=== PATIENT | female | born 1975 | race Caucasian/White ===

== ENCOUNTER 2019-04-29 08:51 | Observation (INO) ==
--- OUTSIDE RECORDS SUMMARY | 2019-04-29 08:54 | External Medical Summary | Continuity of Care Document ---
:1975 Author Name Katherine Blanc, Provider Address Unavailable Unavailable , Care Team Providers Name Role Phone Juan Carlos Cool [email or web address] Juan Carlos Cool M.D. Unavailable Unavailable Unavailable Unavailable Unavailable Problems Atypical chest pain (786.59) (R07.89) Acute bronchitis with bronchospasm (466.0) (J20.9) Pain of left calf (729.5) (M79.662) Somatic dysfunction of lower extremities (739.6) (M99.06) Pelvic somatic dysfunction (739.5) (M99.05) Sacral region somatic dysfunction (739.4) (M99.04) Segmental and somatic dysfunction of lumbar region (739.3) ( M99.03) Piriformis syndrome of right side (355.0) (G57.01) Current tobacco use (305.1) (Z72.0) Anxiety (300.00) (F41.9) Acne (706.1) (L70.9) Allergies and Adverse Reactions No Known Drug Allergies (Allergy) Medications methylPREDNISolone 4 MG Oral Tablet Therapy Pack; Take as directed ROBERTH Uribe Start: 09-Jun-2016 Quantity: 1 21 Tablet Therapy Pa ck Bottle Refills: 0 EQL Nicotine 2 MG LOZG; ALLOW 1 LOZENGE TO DISSOLVE SL OWLY IN MOUTH DIRECTED Jayashree Cool Start: 10-Jun-2017 Quantity: 180 Refills: 3 Ventolin HFA 108 (90 Base) MCG/ACT Inhal ation Aerosol Solution; INHALE 1 TO 2 PUFFS EVERY 4 TO 6 HOURS NEEDED. ROBERTH Uribe Start: 09-Jun-2016 Quantity: 1 18 GM Inhaler Refills: 1 Azithromycin 250 MG Oral Tablet; TAKE 2 TABLETS ON DAY 1 THEN TAKE 1 TABLET A DAY FOR 4 DAYS. ROBERTH Uribe Start: 09-Jun-2016 Quantity: 1 6 Tablet Disp Pack Refills: 0 Aldactone 50 MG Oral Tablet; TAKE 2 TABLET EVERY DAY Start: 01-Mar-2016 Refills: 0 Clindamycin Phosphate 1 % External Lotio n; APPLY SPARINGLY TO AFFECTED AREA(S) ONCE DAILY Start: 01-Mar-2016 Refills: 0 Retin-A 0.025 % External Gel; APPLY DIRECTED. Start: 01-Mar-2016 Refills: 0 Procedures History of Tonsillectomy Status: Complet ed History of Ankle Surgery Status: Complet ed Immunizations Immunizations not documented Social History - Smoking Status Current every day smoker Plan of Treatment Planned Observations Planned Goals not documented Results No Known Results Results not documented Encounters Appointment; Jed Alexandra DO 08-Dec-2017 16:00 Encounter Diagnosis: Problem not documented
[2019-04-29 09:16] LABS: POC Urine Blood 250 (Negative); POC Urine Glucose Normal (Normal); POC Urine Leukocytes 2+ (Negative); POC Urine Nitrite Negative (Negative); POC Urine Protein 1+ (Negative)
[2019-04-29 09:21] LABS: Appearance Urine Turbid (Clear); Bacteria Urine Automated 4+ (Negative); Bilirubin Urine Negative (Negative); Blood Urine 3+ (Negative); Color Urine Yellow; Glucose Urine UA Negative (Negative); Ketones Urine 2+ (Negative); Leukocyte Esterase Urine 3+ (Negative); Nitrite Urine Negative (Negative); Specific Gravity Urine 1.009 (1.000-1.030); Urobilinogen Urine Negative (Negative); WBC Urine Automated >30 /hpf (0-5); pH Urine 7.5 (4.5-7.5)
[2019-04-29 09:30] LABS: Protein Urine 2+ (Negative); Sulfosalicylic Acid Urine Positive (Negative)
[2019-04-29 09:33] LABS: Cast Urine Automated 0 /lpf (0-5); RBC Urine Automated >30 /hpf (0-4)
[2019-04-29] MEDS ORDERED: SODIUM CHLORIDE 0.9% 1000ML 1,000 ML IV ONE (09:44)
[2019-04-29 10:12] LABS: Basophils # (auto) 0.03 K/uL (0-0.2); Basophils % (auto) 0.2 %; Eosinophils # (auto) 0.06 K/uL (0-0.5); Eosinophils % (auto) 0.4 %; Hematocrit (blood only) 39.6 % (37-47); Hemoglobin 13.5 g/dL (12.0-16.0); Immature Granulocytes # (auto) 0.02 K/uL (0.00-0.02); Immature Granulocytes % (auto) 0.1 %; Lymphocytes # (auto) 0.78 K/uL (1.2-3.4); Lymphocytes % (auto) 5.7 %; Mean Corpuscular Hgb Conc 34.1 g/dL (32-36); Mean Corpuscular Volume 90.8 fL (80-100); Monocytes # (auto) 0.88 K/uL (0.11-0.59); Monocytes % (auto) 6.5 %; Neutrophils # (auto) 11.84 K/uL (1.4-6.5); Neutrophils % (auto) 87.1 %; Platelet Count 209 K/uL (130-400); RDW Coefficient of Variation 13.6 % (11.5-14.5); RDW Standard Deviation 45.6 fL (36.4-46.3); Red Blood Count 4.36 M/uL (4.2-5.4); White Blood Count 13.61 K/uL (4.8-10.8)
[2019-04-29 10:28] LABS: Albumin Level 3.6 gm/dl (3.4-5.0); BUN Creatinine Ratio 4.4 (10-20); Bilirubin Direct 0.2 mg/dl (0-0.2); Calcium 9.2 mg/dl (8.5-10.1); Creatinine Clr Calc Pharmacy 75.4 ml/min; Est GFR (African American) 90.2; Est GFR (Non-African American) 77.8; Potassium 3.7 mmol/L (3.5-5.1)
[2019-04-29 10:31] LABS: Albumin Globulin Ratio 0.9 (0.9-2); Bilirubin,Total 0.6 mg/dl (0.2-1); Total Protein 7.6 gm/dl (6.4-8.2)
[2019-04-29] MEDS ORDERED: IOVERSOL 100ml IV PRN (10:45)
--- NOTE | 2019-04-29 10:58 | CT Scan Report ---
ABDOMEN AND PELVIS CT WITH IV CONTRAST CT DOSE: 304.37 mGy.cm HISTORY: Right flank pain, r/o pyelonephritis TECHNIQUE: Multiaxial CT images of the abdomen and pelvis were performed following the use of intrave nous contrast. A dose lowering technique was utilized adhering to the principles of ALARA. COMPARISON STUDY: None. FINDINGS: The lung bases are clear. No pneumoperitoneum. No pneumatosis. No fractures within the visu alized osseous structures. Hepatic steatosis. The gallbladder, pancreas, spleen, and adrenal glands a re unremarkable. No retroperitoneal lymphadenopathy. The bladder, uterus, and bilateral adnexa are un remarkable. No bowel wall thickening or obstruction. Normal appendix. The left kidney enhances normal ly. A 9 mm exophytic hypodense lesion within the upper pole the right kidney is technically too small to characterize but favors a cyst. No hydronephrosis. Mild urothelial thickening within the right re nal pelvis and right ureter with adjacent fat stranding. There is also heterogeneous enhancement with in the right kidney. Therefore, this likely represents a pyelonephritis. IMPRESSION: 1. Heterogeneous enhancement within the right kidney with right-sided urothelial thickening likely re presenting a pyelonephritis. 2. No bowel wall thickening or obstruction. 3. Normal appendix. 4. Hepatic steatosis. Electronically signed by: Gian Burton M.D. 04/29/2019 10:57 AM
[2019-04-29] MEDS ORDERED: cefTRIAXone SODIUM 2,000 MG/70 ML BAG IV STA (11:27)
[2019-04-29] MEDS ORDERED: ACETAMINOPHEN 500 MG TAB PO STA (11:59)
--- NOTE | 2019-04-29 12:49 | History & Physical Report ---
Date of Service April 29, 2019 Assessment & Plan (1) Pyelonephritis: Admits to PCU on telemetry Vital signs every 4 hours IV fluids hydration with normal saline and 125 cc/h Started Rocephin in the ER 2 g continue to 24 hours for pyelonephritis Follow-up blood cultures Follow-up urine cultures For symptoms of myalgia ordered Reglan hour fever and Anaplasma Empirically started doxycycline for possible Anaplasma Influenza AMB pending Regular diet Follow-up CBC CMP daily, to be thorough we will check lipid panel in a.m. and A1c, TSH pending since patient in the ER tachycardic EKG pending for tachycardia DVT prophylaxis Lovenox 40 SC daily Full code Present on Admission?: Yes (2) Urinary tract infection: Same plan as above (3) Rash and nonspecific skin eruption: Started Solu-Medrol 60 mg IV for 2 days then taper down Patient says Benadryl daily help started Vistaril every 25 mg every 6 hours, loratadine and Flonase Monitor rash closely Present on Admission?: Yes (4) Nicotine dependence: Continue nicotine lozenges. Patient abstaining from smoking for 2 years. Present on Admission?: Yes History of Present Illness Chief Complaint: Right flank pain, generalized myalgia, flulike symptoms, rash for 5 days. Primary Care Provider: Juan Carlos Cool MD Patient is a 44 years old female without significant past medical history who presents to the emergency room with complaint of feeling right flank pain, cloudy urine, widespread body rash, and generalized malaise associated with stuffy nose and flulike symptoms. Patient said it has been ongoing for several days since she was on the beach at [place]. Patient tried home remedies to improve her condition but nothing relieves her pain or rash. Patient said she was taking Benadryl but then improve her rash. Patient believed that the rash occurred because she used sunscreen. Patient said that she was never allergic to any other sunscreen except for this one. patient is otherwise healthy. She was smoking in the past but quit 2 years ago and now she is using nicotine lozenges. Patient denies headache, fever, chills, chest pain, shortness of breath, abdominal pain, frequency, urgency, hematemesis, melena, dysuria, pyuria, melena, hematochezia. Patient admits to drinking socially on weekends. Labs are reviewed: WBC elevated of 13.61 with left shift of neutrophils 11.84, hemoglobin 13.5, hematocrit 39.6, platelets 209. Sodium 134, potassium 3.7, BUN 4, creatinine 0.91, GFR 77.8 AST normal 25 ALT 37 normal. Urine analysis significant for blood and urine, 3+ positive leukocyte esterase, over 30 B BC, and 4+ bacteria. Influenza A&B pending, will check for Anaplasma, Legionella since portion patient reports generalized body aches. CT abdomen pelvis significant for heterogeneous in enhancement within the right kidney with right-sided urothelial thickening likely represents a pyelonephritis. Normal appendix. No bowel thickening or obstruction. Hepatic steatosis. Decision was decision was made to admit patient to PCU on telemetry for observation for right kidney pyelonephritis, urinary tract infection generalized malaise and rash of unknown origin. Allergies Allergy/AdvReac Type Severity Reaction Status Date / Time No Known Allergies Allergy NONE Verified 04/29/19 09:55 Home Medications Home Medications Medication Instructions Recorded Confirmed Type No Known Home Medications 04/29/19 04/29/19 History Past Med/Surg History Social History Feels Safe at Home: Yes Smoking Status: Former smoker Review of Systems Review of Systems: All systems reviewed & are unremarkable except as noted in HPI & below Physical Exam Constitutional: WD/WN, vitals as above well developed Eyes: PERRL, conjunctivae normal, anicteric sclerae ENMT: Patient has runny nose with flulike symptoms. Tympanic membrane normal bilaterally Neck: trachea midline, no thyromegaly Respiratory: normal respiratory effort, lungs clear to auscultation Cardiovascular: RRR, no murmur, no edema Vessels: dorsalis pedis pulses present Musculoskeletal: no cyanosis or clubbing, extremities motor strength 5/5 Skin: no rashes, warm and dry + rash (Widespread body rash papular macular in nature patient said it is little bit better than yesterday but still very itchy. No ecchymosis no excoriation no lichenification patient has dry skin.) Neurologic: patellar DTR's 2+ bilat, sensation intact Psychiatric: A+Ox3, euthymic affect Lymphatic: no cervical or axillary lymphadenopathy Results & Data Vital Signs (Past 12 Hours) Vital Signs Temp Pulse Pulse Resp BP BP Pulse Ox 04/29/19 11:10 96 H 20 154/65 H 97 04/29/19 10:07 37.6 C H 93 H 18 129/83 100 04/29/19 08:54 36.9 C 101 H 22 135/82 98 Code Status & VTE Plan Code Status Full code VTE Prophylaxis Plan VTE Prophylaxis will be ordered: Yes PG Care Time/CCT Total # of Minutes Spent Total Time Spent with Patient: Total time spent is greater than 50% in coordination of care (as documented) at patient's floor/unit and/or counseling patient:
[2019-04-29 13:21] LABS: Influenza A virus by PCR Neg for Influ A (Neg); Influenza B virus by PCR Neg for Influ B (Neg)
--- NOTE | 2019-04-29 13:26 | Emergency Department Note ---
History of Present Illness General Chief complaint: Flank Pain Stated complaint: RT SIDED FLANK PAIN Time Seen by Provider: 04/29/19 09:15 Source: patient Mode of arrival: ambulatory Limitations: no limitations History of Present Illness Maximum Pain Intensity: 5 This 44-year-old white female presents to the ED for evaluation of right-sided flank pain that radiates around to her right abdomen and into the groin. She states her urine has been cloudy. She denies any fevers, sweats, nausea, vomiting, or diarrhea. No urinary hesitancy, urgency, burning, or frequency. She is concerned about a UTI. She also complains of a rash on her face, arms and legs. She recently was at the beach for a week. She used a new kind of sunscreen and states she broke out in a rash where the sunscreen was applied. She did try some Benadryl without improvement. Redness has persisted. It has become pruritic. No other treatment. No history of pyelonephritis. She states she overall feels uncomfortable but denies any nirav pain. Home Medications Home Medications Medication Instructions Recorded Confirmed Type cefdinir 300 mg PO BID 10 Days #20 cap 04/30/19 05/03/19 Rx doxycycline hyclate 100 mg PO BID 7 Days #14 tab 04/30/19 05/03/19 Rx prednisone 10 mg PO UD #9 tab 04/30/19 05/03/19 Rx albuterol sulfate HFA 90 1 puffs INH .COMPLEX PRN 05/02/19 05/03/19 History mcg/actuation aerosol inhaler Allergies Allergy/AdvReac Type Severity Reaction Status Date / Time No Known Allergies Allergy NONE Verified 05/03/19 12:02 Past Med/Surg History Medical History Nicotine dependence Surgical History History of ankle surgery S/P tonsillectomy Social History 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 Beliefs That Will Affect Care: None Current Living Situation: Family Feels Safe at Home: Yes Smoking Status: Former smoker Tobacco Type: cigarettes ; Hx Alcohol Use: Yes Alcohol type: beer Hx Substance Use: No Review of Systems A total of 10 systems reviewed and were otherwise negative Physical Exam Vital Signs Vital Signs - 24 hr 04/29/19 08:54 04/29/19 10:07 04/29/19 11:10 Temperature 36.9 C 37.6 C H Temperature Source Oral Oral Sepsis Recent Fever Within 48 Hours No Sepsis Action Taken by Nursing No Action Required Pulse Rate 101 H Pulse Rate [Left Finger] 93 H 96 H Pulse Rhythm Regular Pulse Strength Normal Respiratory Rate 22 18 20 Respiratory Effort / Characteristics Non-Labored Spontaneous Non-Labored Spontaneous Non-Labored Respiratory Depth Normal Normal Normal Respiratory Pattern Regular Regular Blood Pressure 135/82 Blood Pressure [Left Arm] 129/83 154/65 H Blood Pressure Mean 99 Blood Pressure Mean [Left Arm] 98 94 Blood Pressure Position Sitting Pulse Oximetry 98 100 97 Oxygen Delivery Method Room Air Room Air Room Air 04/29/19 12:47 Temperature Temperature Source Sepsis Recent Fever Within 48 Hours Sepsis Action Taken by Nursing Pulse Rate Pulse Rate [Left Finger] 105 H Pulse Rhythm Pulse Strength Respiratory Rate 20 Respiratory Effort / Characteristics Non-Labored Respiratory Depth Normal Respiratory Pattern Regular Blood Pressure Blood Pressure [Left Arm] 129/81 Blood Pressure Mean Blood Pressure Mean [Left Arm] 97 Blood Pressure Position Pulse Oximetry 98 Oxygen Delivery Method Room Air General: Well-developed, well-nourished, middle-aged white female, in no acute distress. Laying on a bed. Alert and oriented. Skin: Warm and dry with good turgor. Erythemic macules present on her face, arms, and legs. They do darline with pressure. Small excoriations are present from her scratching. No ecchymosis or edema. The patient is not diaphoretic. No other abrasions. HEENT: Normocephalic atraumatic. Eyes PERRLA, EOMI. No conjunctiva or scleral injection. Ears TMs intact bilaterally with good light reflexes. No erythema or bulging. No hemotympanum. Canals are patent. Nares patent bilaterally without turbinate enlargement. No significant drainage. No epistaxis. Oropharynx without erythema or exudate. Uvula midline, oral mucosa moist. No lesions present. Heart: Heart RRR. No MGR. Peripheral pulses are 2+. Lungs: Lungs are clear to auscultation. No crackles rhonchi or wheezing. Good air movement. The patient is able to take a deep breath. Abdomen: Abdomen was inspected, auscultated, and palpated. Bowel sounds present x 4. Soft, right lower quadrant and flank tender to palpation. No hepato- splenomegaly. No masses noted. No rebound. No pain over McBurney's point. Right-sided CVA tenderness to percussion. Musculoskeletal: Gross motor function of the upper and lower extremities is intact and unremarkable. Symmetric strength in the arms and legs. Neurologic: Cranial nerves II through XII are intact. Gross sensation is intact across the upper and lower extremities by soft touch. Course Administered Medications Discontinued Medications Acetaminophen (Tylenol) 1,000 mg PO NOW STA Stop: 04/29/19 12:00 Last Admin: 04/29/19 12:02 Dose: 1,000 mg Documented by: [id number] Enoxaparin Sodium (Lovenox) 40 mg SQ Q24H ROLAN Stop: 05/29/19 17:59 Last Admin: 04/29/19 17:46 Dose: 40 mg Documented by: [id number] Fluticasone Propionate (Flonase) 2 sprays NA BID ROLAN Stop: 05/29/19 14:20 Last Admin: 04/30/19 08:08 Dose: Not Given Documented by: [id number] Admin: 04/29/19 20:33 Dose: Not Given Documented by: [id number] Admin: 04/29/19 14:59 Dose: Not Given Documented by: [id number] Hydroxyzine HCl (Vistaril) 25 mg PO Q6 PRN PRN Reason: Allergic Reaction Stop: 05/01/19 14:20 Last Admin: 04/30/19 08:01 Dose: 25 mg Documented by: [id number] Sodium Chloride (Nss 1000ml) 1,000 mls @ 999 mls/hr IV .Q1H1M ONE Stop: 04/29/19 10:44 Last Infusion: 04/29/19 11:30 Dose: 0 mls/hr Documented by: [id number] Admin: 04/29/19 10:05 Dose: 999 mls/hr Documented by: [id number] Ceftriaxone Sodium (Rocephin) 2,000 mg in 70 mls @ 140 mls/hr IV NOW STA Stop: 04/29/19 11:56 Last Infusion: 04/29/19 12:32 Dose: 0 mls/hr Documented by: [id number] Admin: 04/29/19 11:50 Dose: 140 mls/hr Documented by: [id number] Sodium Chloride (Nss 1000ml) 1,000 mls @ 125 mls/hr IV .Q8H ROLAN Stop: 05/29/19 14:29 Last Admin: 04/30/19 08:01 Dose: 125 mls/hr Documented by: [id number] Infusion: 04/30/19 08:01 Dose: 125 mls/hr Documented by: [id number] Admin: 04/30/19 03:29 Dose: 125 mls/hr Documented by: [id number] Infusion: 04/29/19 22:59 Dose: 125 mls/hr Documented by: [id number] Admin: 04/29/19 14:59 Dose: 125 mls/hr Documented by: [id number] Methylprednisolone 60 mg/ (Syringe) 0.96 mls @ 1.5 mls/min IV BID ROLAN Stop: 04/30/19 09:01 Last Admin: 04/30/19 08:04 Dose: 1.5 mls/min Documented by: [id number] Admin: 04/29/19 20:34 Dose: 1.5 mls/min Documented by: [id number] Admin: 04/29/19 14:59 Dose: 1.5 mls/min Documented by: [id number] Ceftriaxone Sodium 2,000 mg/ (Dextrose) 70 mls @ 100 mls/hr IV DAILY ROLAN; Protocol Stop: 05/10/19 08:59 Last Infusion: 04/30/19 08:46 Dose: 0 mls/hr Documented by: [id number] Admin: 04/30/19 08:04 Dose: 100 mls/hr Documented by: [id number] Doxycycline Hyclate 100 mg/ (Dextrose) 110 mls @ 50 mls/hr IV BID ROLAN Stop: 05/13/19 14:59 Last Infusion: 04/30/19 10:16 Dose: 0 mls/hr Documented by: [id number] Admin: 04/30/19 08:04 Dose: 50 mls/hr Documented by: [id number] Infusion: 04/29/19 23:15 Dose: 0 mls/hr Documented by: [id number] Admin: 04/29/19 20:43 Dose: 50 mls/hr Documented by: [id number] Infusion: 04/29/19 17:41 Dose: 0 mls/hr Documented by: [id number] Admin: 04/29/19 14:59 Dose: 50 mls/hr Documented by: [id number] Ioversol (Optiray 320 100ml) 94 ml IV ONCE PRN PRN Reason: Interaction Checking Stop: 05/03/19 10:44 Last Admin: 04/29/19 10:45 Dose: 94 ml Documented by: [id number] Loratadine (Claritin) 10 mg PO QAM ROLAN Stop: 05/29/19 14:59 Last Admin: 04/30/19 08:01 Dose: 10 mg Documented by: [id number] Admin: 04/29/19 14:59 Dose: Not Given Documented by: [id number] Oxycodone/Acetaminophen (Percocet 5mg/325mg) 1 tab PO Q4H PRN PRN Reason: Pain Stop: 05/13/19 14:20 Last Admin: 04/29/19 22:25 Dose: 1 tab Documented by: [id number] Admin: 04/29/19 17:50 Dose: 1 tab Documented by: [id number] Zolpidem Tartrate (Ambien) 5 mg PO HS PRN PRN Reason: Sleep Stop: 05/29/19 14:20 Last Admin: 04/29/19 22:25 Dose: 5 mg Documented by: [id number] Medical Decision Making Differential Diagnosis Pyelonephritis, kidney stone, muscle strain, appendicitis, bowel obstruction, g astritis, ovarian cyst Medical Records Attestation: I reviewed the patient's medical records. Home Medications Current Medication List: was personally reviewed by me Laboratory Data Attestation: I reviewed the patient's lab results. CBC, chemistry panel, and UA were obtained. UA shows turbid urine with 2+ proteins, 2+ ketones, 3+ blood, positive leukocyte esterase, and 4+ bacteria. White count is mildly elevated at 13.6. Normal H&H. Chemistry panel is unremarkable. Urine test was negative. Result diagrams: 04/30/19 05:51 04/30/19 05:51 Lab Results 04/29/19 04/29/19 04/29/19 Range/Units 09:10 09:10 09:10 WBC (4.8-10.8) K/uL RBC (4.2-5.4) M/uL Hgb (12.0-16.0) g/dL Hct (37-47) % MCV (80-100) fL MCH (25-34) pg MCHC (32-36) g/dL RDW Std Deviation (36.4-46.3) fL RDW Coeff of Anjali (11.5-14.5) % Plt Count (130-400) K/uL MPV (7.4-10.4) fL Immature Gran % (Auto) % Neut % (Auto) % Lymph % (Auto) % [place] % (Auto) % Eos % (Auto) % Baso % (Auto) % Immature Gran # (Auto) (0.00-0.02) K/uL Neut # (Auto) (1.4-6.5) K/uL Lymph # (Auto) (1.2-3.4) K/uL [place] # (Auto) (0.11-0.59) K/uL Eos # (Auto) (0-0.5) K/uL Baso # (Auto) (0-0.2) K/uL Absolute Nucleated RBC (0-0) K/uL Nucleated RBC % (auto) % Peripher Smr Path Cons Sodium (136-145) mmol/L Potassium (3.5-5.1) mmol/L Chloride (98-107) mmol/L Carbon Dioxide (21-32) mmol/L Anion Gap (3-11) BUN (7-18) mg/dl Creatinine (0.6-1.2) mg/dl Est Cr Clr Drug Dosing ml/min Est GFR ( Amer) Est GFR (Non-Af Amer) BUN/Creatinine Ratio (10-20) Glucose (70-99) mg/dl Calcium (8.5-10.1) mg/dl Total Bilirubin (0.2-1) mg/dl Direct Bilirubin (0-0.2) mg/dl AST (15-37) U/L ALT (12-78) U/L Alkaline Phosphatase (45-117) U/L Total Protein (6.4-8.2) gm/dl Albumin (3.4-5.0) gm/dl Globulin (2.5-4.0) gm/dl Albumin/Globulin Ratio (0.9-2) Urine Color Yellow Urine Appearance Turbid A (Clear) Urine pH 7.5 (4.5-7.5) POC Urine pH Not Reportable Ur Specific Hartley 1.009 (1.000-1.030) Urine Protein 2+ H (Negative) POC Urine Protein 1+ H (Negative) Urine Glucose (UA) Negative (Negative) POC Ur Glucose (UA) Normal (Normal) Urine Ketones 2+ H (Negative) POC Urine Ketones 2+ (Moderate) H (Negative) Urine Blood 3+ H (Negative) POC Urine Blood 250 H (Negative) Urine Nitrite Negative (Negative) POC Urine Nitrite Negative (Negative) Urine Bilirubin Negative (Negative) POC Urine Bilirubin Not Reportable Urine Urobilinogen Negative (Negative) POC Urine Urobilinogen Not Reportable Ur Leukocyte Esterase 3+ H (Negative) POC U Leukocyte Esteras 2+ H (Negative) Urine WBC (Auto) >30 H (0-5) /hpf Urine RBC (Auto) >30 H (0-4) /hpf U Hyaline Cast (Auto) 0 (0-5) /lpf U Epithel Cells (Auto) 10-20 H (0-5) /lpf Urine Bacteria (Auto) 4+ H (Negative) Urine Yeast Not Reportable POC Ur Test NEG (NEG) 04/29/19 04/29/19 Range/Units 09:58 09:58 WBC 13.61 H (4.8-10.8) K/uL RBC 4.36 (4.2-5.4) M/uL Hgb 13.5 (12.0-16.0) g/dL Hct 39.6 (37-47) % MCV 90.8 (80-100) fL MCH 31.0 (25-34) pg MCHC 34.1 (32-36) g/dL RDW Std Deviation 45.6 (36.4-46.3) fL RDW Coeff of Anjali 13.6 (11.5-14.5) % Plt Count 209 (130-400) K/uL MPV 10.0 (7.4-10.4) fL Immature Gran % (Auto) 0.1 % Neut % (Auto) 87.1 % Lymph % (Auto) 5.7 % [place] % (Auto) 6.5 % Eos % (Auto) 0.4 % Baso % (Auto) 0.2 % Immature Gran # (Auto) 0.02 (0.00-0.02) K/uL Neut # (Auto) 11.84 H (1.4-6.5) K/uL Lymph # (Auto) 0.78 L (1.2-3.4) K/uL [place] # (Auto) 0.88 H (0.11-0.59) K/uL Eos # (Auto) 0.06 (0-0.5) K/uL Baso # (Auto) 0.03 (0-0.2) K/uL Absolute Nucleated RBC 0.00 (0-0) K/uL Nucleated RBC % (auto) 0.0 % Peripher Smr Path Cons Sodium 134 L (136-145) mmol/L Potassium 3.7 (3.5-5.1) mmol/L Chloride 102 (98-107) mmol/L Carbon Dioxide 24 (21-32) mmol/L Anion Gap 9.0 (3-11) BUN 4 L (7-18) mg/dl Creatinine 0.91 (0.6-1.2) mg/dl Est Cr Clr Drug Dosing 75.4 ml/min Est GFR ( Amer) 90.2 Est GFR (Non-Af Amer) 77.8 BUN/Creatinine Ratio 4.4 L (10-20) Glucose 110 H (70-99) mg/dl Calcium 9.2 (8.5-10.1) mg/dl Total Bilirubin 0.6 (0.2-1) mg/dl Direct Bilirubin 0.2 (0-0.2) mg/dl AST 25 (15-37) U/L ALT 37 (12-78) U/L Alkaline Phosphatase 114 (45-117) U/L Total Protein 7.6 (6.4-8.2) gm/dl Albumin 3.6 (3.4-5.0) gm/dl Globulin 4.0 (2.5-4.0) gm/dl Albumin/Globulin Ratio 0.9 (0.9-2) Urine Color Urine Appearance (Clear) Urine pH (4.5-7.5) POC Urine pH Ur Specific [place] (1.000-1.030) Urine Protein (Negative) POC Urine Protein (Negative) Urine Glucose (UA) (Negative) POC Ur Glucose (UA) (Normal) Urine Ketones (Negative) POC Urine Ketones (Negative) Urine Blood (Negative) POC Urine Blood (Negative) Urine Nitrite (Negative) POC Urine Nitrite (Negative) Urine Bilirubin (Negative) POC Urine Bilirubin Urine Urobilinogen (Negative) POC Urine Urobilinogen Ur Leukocyte Esterase (Negative) POC U Leukocyte Esteras (Negative) Urine WBC (Auto) (0-5) /hpf Urine RBC (Auto) (0-4) /hpf U Hyaline Cast (Auto) (0-5) /lpf U Epithel Cells (Auto) (0-5) /lpf Urine Bacteria (Auto) (Negative) Urine Yeast POC Ur Test (NEG) Imaging Data Attestation: I personally reviewed and interpreted this imaging study as follows: Radiologist's Impression: CT scan imaging of the abdomen and pelvis with IV contrast was obtained today. This was reviewed by me and read by radiology. She has heterogeneous enhancement within the right kidney with right-sided urothelial thickening likely representing a pyelonephritis. No bowel wall thickening or obstruction. Normal appendix. Hepatic steatosis. Blood Pressure Blood Pressure Disposition: elevated BP felt to be situational MDM Narrative Patient was evaluated in room B 10. Conservative care measures were discussed. IV was established. Labs were obtained. CT scan imaging of the abdomen and pelvis with IV contrast was also obtained after her lab values were known. Her urine suggested significant UTI. Given her flank pain, CT imaging was was deemed prudent. Patient was hydrated using 1 L normal sterile saline IV bolus. She was given Rocephin 2 g IV while in the ED. Patient also mentioned a mild headache while she was in the ED. She was given 1 g Tylenol orally for this. Due to her lab and imaging findings, I did recommend admission for observation. Patient was in agreement. I did contact Dr. Burton from the hospitalist service for admission. She did come to the ED to evaluate the patient. Please see her dictation for final management. She remained stable while in the ED. Care plan was discussed with Dr. Pedraza. Impression & Plan Rash and nonspecific skin eruption, Pyelonephritis Discharge Plan Visit Data *Final* Discharge Date/Time: 04/29/19 13:49 Chief Complaint: Flank Pain Stated Complaint: RT SIDED FLANK PAIN ED Provider: Saurabh Pedraza ED Midlevel Provider: Clifton Lewis Discharge Problem: Rash and nonspecific skin eruption, Pyelonephritis Patient Disposition: Admitted As Inpatient Discharge Instructions Interventions: ED Discharge Assessment Last Done: 04/29/19 13:49
[2019-04-29] MEDS ORDERED: ZOLPIDEM TARTRATE 5 MG TAB PO PRN (14:21)
[2019-04-29] MEDS ORDERED: MAGNESIUM HYDROXIDE SUSP 30 ML UDC PO PRN (14:21)
[2019-04-29] MEDS ORDERED: ONDANSETRON INJ 2 MG/ML 2 ML VIAL IV PRN (14:21)
[2019-04-29] MEDS ORDERED: ACETAMINOPHEN 325 MG TAB PO PRN (14:21)
[2019-04-29] MEDS ORDERED: KETOROLAC 30 MG/ML VIAL IV PRN (14:21)
[2019-04-29] MEDS ORDERED: NICOTINE POLACRILEX 2 MG GUM MT PRN (14:21)
[2019-04-29] MEDS ORDERED: POLYETHYLENE (MIRALAX) 17 GM PACK PO PRN (14:21)
[2019-04-29] MEDS ORDERED: ALUMINUM/MAGNESIUM SUSP 30 ML UDC PO PRN (14:21)
[2019-04-29] MEDS: methylPREDNISolone 60 MG in SYRINGE 0 ML IV SCH ×2 (14:59→20:34)
[2019-04-29] MEDS: SODIUM CHLORIDE 0.9% 1000ML 1,000 ML IV SCH (14:59)
[2019-04-29] MEDS: DOXYCYCLINE HYCLATE 100 MG in DEXTROSE 5% 100 ML IV SCH ×2 (14:59→20:43)
[2019-04-29] MEDS: FLUTICASONE PROPIONATE NA SPR 16 GM BTL SCH ×2 (14:59→20:33)
[2019-04-29] MEDS: LORATADINE 10 MG TAB PO SCH (14:59)
[2019-04-29] MEDS: OXYCODONE/ACETAMINOPHEN 5mg/325mg TAB PO PRN ×2 (17:50→22:25)
[2019-04-29] MEDS ORDERED: ENOXAPARIN INJ 40 MG/0.4 ML SYR SQ SCH (18:00)
[2019-04-30] MEDS: SODIUM CHLORIDE 0.9% 1000ML 1,000 ML IV SCH ×2 (03:29→08:01)
[2019-04-30 06:10] LABS: Hematocrit (blood only) 35.7 % (37-47); Hemoglobin 11.7 g/dL (12.0-16.0); Immature Granulocytes # (auto) 0.03 K/uL (0.00-0.02); Immature Granulocytes % (auto) 0.3 %; Lymphocytes # (auto) 0.47 K/uL (1.2-3.4); Lymphocytes % (auto) 4.2 %; Mean Corpuscular Hemoglobin 29.8 pg (25-34); Mean Corpuscular Hgb Conc 32.8 g/dL (32-36); Mean Corpuscular Volume 90.8 fL (80-100); Mean Platelet Volume 10.4 fL (7.4-10.4); Monocytes # (auto) 0.38 K/uL (0.11-0.59); Monocytes % (auto) 3.4 %; Neutrophils % (auto) 92.1 %; Platelet Count 187 K/uL (130-400); RDW Coefficient of Variation 13.4 % (11.5-14.5); RDW Standard Deviation 44.7 fL (36.4-46.3); Red Blood Count 3.93 M/uL (4.2-5.4); White Blood Count 11.28 K/uL (4.8-10.8)
[2019-04-30 06:50] LABS: Albumin Level 2.7 gm/dl (3.4-5.0); BUN Creatinine Ratio 9.4 (10-20); Calcium 8.6 mg/dl (8.5-10.1); Creatinine Clr Calc Pharmacy 100.9 ml/min; Est GFR (Non-African American) 107.9; Potassium 4.2 mmol/L (3.5-5.1)
[2019-04-30 06:53] LABS: Estimated Average Glucose 97 mg/dl
[2019-04-30 06:54] LABS: Albumin Globulin Ratio 0.7 (0.9-2); Bilirubin,Total 0.3 mg/dl (0.2-1); Globulin 3.9 gm/dl (2.5-4.0); Total Protein 6.6 gm/dl (6.4-8.2)
[2019-04-30] MEDS: LORATADINE 10 MG TAB PO SCH (08:01)
[2019-04-30] MEDS: methylPREDNISolone 60 MG in SYRINGE 0 ML IV SCH (08:04)
[2019-04-30] MEDS: DOXYCYCLINE HYCLATE 100 MG in DEXTROSE 5% 100 ML IV SCH (08:04)
[2019-04-30] MEDS: FLUTICASONE PROPIONATE NA SPR 16 GM BTL SCH (08:08)
[2019-04-30] MEDS ORDERED: cefTRIAXone SODIUM 2,000 MG in DEXTROSE 5% 50 ML IV SCH (09:00)
--- NOTE | 2019-04-30 10:39 | Infectious Disease Consult ---
Date of Consultation April 30, 2019 Assessment & Plan (1) Pyelonephritis: continue current abx, can change doxy to po. will check serologies. await ID gnr from urine culture, follow blood cultures, negative to date. (2) Rash and nonspecific skin eruption: History of Present Illness Attending Physician: Epifanio Blackwood pt admitted with le and ue rash. no itching, no burning, no trunk involvement. was recently on vacation in [place] with family, 2 dogs. no one else has rash. She denies any recently abx, only takes aleve and benadryl as needed. no f/c at home. per H&P she had right flank pain and cloudy urine, but she does not mention this on my exam. deneis symptoms. States she came to ER due to rash. no open wounds. She was started on ctx for suspected pyelo, ct showing right renal stranding. wbc 13, 11 this am, creat normal. UA >30 wbc, +4bacteria. blood cultures pending, also started emperically on doxy - tolreating well. no serologies sent, perph smear negative anaplasma. She denies any insect bites. ID was consulted due to concern for RMSF. Urine culture growing >100,000 gnr. She denies f/c. no myalgia, arthralgia, joint swelling, no abd pain, no n/v/d. no cp, sob, rankin, cough. no dysuria. toleraitng abx. Allergies Allergy/AdvReac Type Severity Reaction Status Date / Time No Known Allergies Allergy NONE Verified 04/29/19 09:55 Home Medications Home Medications Medication Instructions Recorded Confirmed Type No Known Home Medications 04/29/19 04/29/19 History Patient History Social History Preferred Language: Paraguayan Thread Clipper Required: No Beliefs That Will Affect Care: None Current Living Situation: Family Feels Safe at Home: Yes Smoking Status: Former smoker Tobacco Type: cigarettes ; Hx Alcohol Use: Yes Alcohol type: beer Hx Substance Use: No Review of Systems Review of Systems: All systems reviewed & are unremarkable except as noted in HPI & below Physical Exam Constitutional: WD/WN, vitals as above Eyes: PERRL, conjunctivae normal, anicteric sclerae ENMT: external ear and nose normal, oropharynx normal Neck: normal visual inspection Respiratory: normal respiratory effort, lungs clear to auscultation Cardiovascular: RRR, no murmur, no edema Gastrointestinal (Abdomen): normal bowel sounds, soft, nontender, no hepatosplenomegaly Musculoskeletal: no cyanosis or clubbing, extremities motor strength 5/5 Skin: + rash (b/l le and ue, neck diffuse maculopapular rash, flat) Psychiatric: A+Ox3, euthymic affect Results & Data Vital Signs (Past 12 Hours) Vital Signs Temp Pulse Pulse Resp BP Pulse Ox 04/30/19 08:00 68 04/30/19 07:40 36.6 C 79 16 118/83 97 04/30/19 04:10 36.4 C L 71 18 123/86 99 04/29/19 23:17 70 Laboratory Results Microbiology 04/29/19 09:10 Urine,Clean Catch Urine Culture - Preliminary Gram negative bacilli PG Care Time/CCT Total # of Minutes Spent Total Time Spent with Patient: Total time spent is greater than 50% in coordination of care (as documented) at patient's floor/unit and/or counseling patient:
[2019-04-30 14:00] LABS: Lyme Ab IgG w/WB Rflx Negative (Negative)
[2019-04-30 14:07] LABS: Lyme Ab IgM w/WB Rflx Equivocal (Negative)
[2019-05-02 16:43] LABS: Ehrlichia chaff IgG Ab <1:64 (<1:64); Ehrlichia chaff IgM Ab <1:20 (<1:20)
[2019-05-09 03:06] LABS: 18KDIGG Band NONREACTIVE (NONREACTIVE); 23KDIGG Band NONREACTIVE (NONREACTIVE); 23KDIGM Band REACTIVE (NONREACTIVE); 28KDIGG Band NONREACTIVE (NONREACTIVE); 30KDIGG Band NONREACTIVE (NONREACTIVE); 39KDIGG Band NONREACTIVE (NONREACTIVE); 39KDIGM Band NONREACTIVE (NONREACTIVE); 41KDIGG Band NONREACTIVE (NONREACTIVE); 41KDIGM Band NONREACTIVE (NONREACTIVE); 45KDIGG Band NONREACTIVE (NONREACTIVE); 58KDIGG Band NONREACTIVE (NONREACTIVE); 66KDIGG Band NONREACTIVE (NONREACTIVE); 93KDIGG Band NONREACTIVE (NONREACTIVE); Lyme Antibodies, WB IgG NEGATIVE (NEGATIVE); Lyme Antibodies, WB IgM NEGATIVE (NEGATIVE)
--- NOTE | 2019-05-13 22:53 | Discharge Summary ---
Date of Service April 30, 2019 Admission HPI Per Admitting Provider Patient is a 44 years old female without significant past medical history who presents to the emergency room with complaint of feeling right flank pain, cloudy urine, widespread body rash, and generalized malaise associated with stuffy nose and flulike symptoms. Patient said it has been ongoing for several days since she was on the beach at [place]. Patient tried home remedies to improve her condition but nothing relieves her pain or rash. Patient said she was taking Benadryl but then improve her rash. Patient believed that the rash occurred because she used sunscreen. Patient said that she was never allergic to any other sunscreen except for this one. patient is otherwise healthy. She was smoking in the past but quit 2 years ago and now she is using nicotine lozenges. Patient denies headache, fever, chills, chest pain, shortness of breath, abdominal pain, frequency, urgency, hematemesis, melena, dysuria, pyuria, melena, hematochezia. Patient admits to drinking socially on weekends. Labs are reviewed: WBC elevated of 13.61 with left shift of neutrophils 11.84, hemoglobin 13.5, hematocrit 39.6, platelets 209. Sodium 134, potassium 3.7, BUN 4, creatinine 0.91, GFR 77.8 AST normal 25 ALT 37 normal. Urine analysis significant for blood and urine, 3+ positive leukocyte esterase, over 30 B BC, and 4+ bacteria. Influenza A&B pending, will check for Anaplasma, Legionella since portion patient reports generalized body aches. CT abdomen pelvis significant for heterogeneous in enhancement within the right kidney with right-sided urothelial thickening likely represents a pyelonephritis. Normal appendix. No bowel thickening or obstruction. Hepatic steatosis. Decision was decision was made to admit patient to PCU on telemetry for observation for right kidney pyelonephritis, urinary tract infection generalized malaise and rash of unknown origin. Principal Diagnosis Possible swati [place] spotted fever Discharge Exam Constitutional: WD/WN, vitals as above well developed Eyes: PERRL, conjunctivae normal, anicteric sclerae ENMT: Tympanic membrane normal bilaterally Neck: trachea midline, no thyromegaly Respiratory: normal respiratory effort, lungs clear to auscultation Cardiovascular: RRR, no murmur, no edema Vessels: dorsalis pedis pulses present Musculoskeletal: no cyanosis or clubbing, extremities motor strength 5/5 Skin: no rashes, warm and dry + rash (Widespread body rash papular macular in nature patient said it is little bit better than yesterday but still very itchy. No ecchymosis no excoriation no lichenification patient has dry skin.) Neurologic: patellar DTR's 2+ bilat, sensation intact Psychiatric: A+Ox3, euthymic affect Lymphatic: no cervical or axillary lymphadenopathy Discharge Data Allergies Allergy/AdvReac Type Severity Reaction Status Date / Time No Known Allergies Allergy NONE Verified 05/03/19 12:02 Consultations 04/29/19 12:00 ED Decision to Admit Stat 04/30/19 10:11 Consult Infectious Diseases Routine Ordered Studies 04/29/19 10:08 CT abd pelvis IV con only Stat Hospital Course (1) Pyelonephritis: Admits to PCU on telemetry Vital signs every 4 hours IV fluids hydration with normal saline and 125 cc/h Started Rocephin in the ER 2 g continue to 24 hours for pyelonephritis Follow-up blood cultures Follow-up urine cultures For symptoms of myalgia ordered Reglan hour fever and Anaplasma Empirically started doxycycline for possible Anaplasma Influenza AMB pending Regular diet On day 2 of hospital stay, Appears patient may have [place] spotted fever given her rash. It does not appear to be from a contact dermatitis. Will continue patient on doxycycline. Will obtain blood work. Will likely rrequire future testing to rule this out as labs come back positive later in the course. Ok to discharge (2) Urinary tract infection: Same plan as above (3) Rash and nonspecific skin eruption: Started Solu-Medrol 60 mg IV for 2 days then taper down Patient says Benadryl daily help started Vistaril every 25 mg every 6 hours, loratadine and Flonase Monitor rash closely (4) Nicotine dependence: Continue nicotine lozenges. Patient abstaining from smoking for 2 years. 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 Juan Carlos Cool's office with his associate, Nasima Jones PA-C, on TuesdayMay 04 at 8:10 am. *If you need to change this appointment, call the office at [phone].) Diet: Regular Addtl Attending Provider Instructions: You were seen for a rash. There is question that the rash may be from either her sunscreen or if this is from Swati mountain spotted fever. Will recommend to continue with antibiotics for about a week Will recommend to limit sunlight exposure. Start doxycyline tonight. Start cefdinir in the AM. Pending Studies at Discharge: No Stand-Alone Forms: My [facility] Medications and DC Order Prescriptions: New prednisone 10 mg tablet 10 mg PO UD Qty: 9 RF: 0 No Action albuterol sulfate [Ventolin HFA] 90 mcg/actuation HFA aerosol inhaler 1 puffs INH .COMPLEX PRNRF: 0 Discharge Orders: Discharge Order (Routine); Ordered 04/30/19 Ordered By: Epifanio Blackwood Admission Data Admit Date/Time: 04/29/19 12:36 Attending Provider: Epifanio Blackwood Admit Provider: Leonel Burton Primary Care Provider: Juan Carlos Cool Other Providers: Shante Castro Other Interventions: Discharge Summary Assessment (RN) Last Done: 04/30/19 17:59 DC Date/Time DO NOT enter until pt leaves facility: 04/30/19 18:15
== END 2019-04-30 18:15 | disposition home or self-care (01) ==
LOC: 2E 08:51 → ED 08:51 → SUATTDRO 12:36 → 2E 13:49
DX: Z87.891 Personal history of nicotine dependence; N12 Tubulo-interstitial nephritis, not specified as acute or chronic; R21 Rash and other nonspecific skin eruption

== ENCOUNTER 2024-12-29 17:44 | Observation (INO) ==
--- NOTE | 2024-12-29 18:09 | Emergency Department Note ---
Impression & Plan Alcoholic intoxication, Tick bite ED Provider Note Provider: Sloan Snell MD CHIEF COMPLAINT: Alcohol intoxication, wishes for rehab/detox HISTORY OF PRESENT ILLNESS: Patient is a 49-year-old female past medical history significant for alcohol abuse presenting here today reporting that she has been drinking heavily over the last 2 months. Just got back from a trip to [place] where she is drinking heavily. Denies other drug use. Denies any falls. States she knows she needs to stop. Has been in rehab before. States that she is done a before as well. Denies history of seizures hallucinations feeling anxious and tremulous. Feeling a bit nauseous. States he has a few scattered bruises on her body and she does not want this in relation to the alcohol use. Again she denies any trauma or pain at this time. Somewhat tearful. States her last drink of alcohol was an hour or 2 ago when she had about 6 shots. Patient does relay that she wants the normal cocktail medications he received such as Ativan and Zofran and IV fluids dropped into her. Patient states she has not slept in several days. PAST MEDICAL HISTORY: As noted above MEDICATIONS: Reviewed no medications SOCIAL HISTORY: Alcohol abuse PHYSICAL EXAM: GENERAL: alert and oriented to person resting on stretcher. Tearful at times and anxious. Head: normocephalic and atraumatic EYES: No injection, discharge or icterus. EOMI. NECK: Trachea midline. ENT: Mucous membranes pink and moist. LUNGS: Airway patent. No retractions or tachypnea HEART: Regular rate and rhythm. SKIN: Acyanotic, warm, dry, with few scattered contusions on the extremities. Later noted to have a small embedded tick in the right lower lumbar back region. EXTREMITIES: Without swelling with a few scattered contusions on the lower extremities but no other deformity noted. NEUROLOGICAL: No focal deficits. No aphasia. No facial droop with maybe some slightly slurred speech. Ambulatory. EK bpm normal sinus rhythm. No PVC or PAC. No acute ST segment elevation or depression with a QTc of 462. CONTINUOUS CARDIAC MONITORING: was ordered and showed a heart rate of 70s to 90s bpm in normal sinus rhythm Patient's laboratory studies and imaging reviewed. Differential includes Alcohol intoxication, toxicologic, infection, hypoglycemia, electrolyte abnormalities, cardiac sources, intracerebral event, neurologic, trauma, as well as other pathologies. IMPRESSION/MEDICAL DECISION MAKING: Patient given IV fluid, thiamine, folic acid, Zofran, Pepcid, and Ativan here for symptom control and vitamin replacement with her history of alcohol abuse. Basic blood work is obtained including electrolytes and alcohol level. Denies other drug use. No trauma reported or pain. Scattered contusions likely related more to her alcohol use and platelet dysfunction. She is requesting detox and believe given the severity of her alcoholism, starting with inpatient monitor detox here would be reasonable and she is agreeable. Patient states she often has some lower blood pressures. Does later request additional medication to help her sleep before even receiving the Ativan here. Advised like to be cautious to avoid oversedation and provide medications incrementally. Later given additional Valium and patient continues to request medications to help her to sleep. Incidentally noted to have a right lower back a tick was embeded. Does not appear severely engorged and she is unsure exactly how long this may have been here. She also does not know how she got it. No surrounding rash. Patient does report a history of [place] spotted fever in the past. Lyme testing is ordered and we will give a single dose of doxycycline as a preventative measure. Blood work here without severe leukocytosis, anemia, or thrombocytopenia. No severe electrolyte abnormalities or renal dysfunction. No significant transaminitis concerning for hepatitis or pancreatitis noted on blood work. Negative testing. Alcohol level significantly elevated 336 still. Patient is more calm after a couple doses of benzodiazepine. Will bring in the hospital for further care and monitoring of her alcohol withdrawal and possible rehab placement. Discussed with [place] hospitalist team. DIAGNOSIS: Alcohol intoxication, tick bite DISPOSITION: Hospitalist will evaluate Patient was agreeable with this plan. Tick removal: Performed at bedside by myself with patient's permission. Area cleaned with alcohol swab. Using tweezers grasped at the head and removed in 2 pieces. No active bleeding. Tick not severely engorged. No complications patient tolerated well and cleaned alcohol swab and again bandage. Past Med/Surg History Problem List (Updated 12/29/24 @ 19:24 by Sloan Snell M.D.) Tick bite (Acute) Alcoholic intoxication (Acute) Nicotine dependence Rash and nonspecific skin eruption (Acute) Urinary tract infection Pyelonephritis (Acute) Displaced fracture of fifth metatarsal bone of left foot (Acute) Medical History (Updated 12/29/24 @ 19:24 by Sloan Snell M.D.) Nicotine dependence Surgical History S/P tonsillectomy History of ankle surgery Social History Smoking Status: Current every day smoker Tobacco Type: Cigarettes Hx Alcohol Use: Yes Alcohol type: beer Hx Substance Use: No Preferred Language: [place] Air Operations Manager Required: No Beliefs That Will Affect Care: None Current Living Situation: Family Feels Safe at Home: Yes Assistive Devices: None Allergies Allergies Allergy/AdvReac Type Severity Reaction Status Date / Time No Known Allergies Allergy NONE Verified 05/03/19 12:02 Home Meds Home Medications Medication Instructions Recorded Confirmed cholecalciferol (vitamin D3) 50 2,000 unit PO DAILY 01/07/23 01/07/23 mcg (2,000 unit) capsule hydroxyzine HCl 10 mg tablet 5 - 20 mg PO TID PRN Anxiety 01/07/23 01/07/23 rosuvastatin 5 mg tablet 5 mg PO Q OTHER DAY 01/07/23 01/07/23 venlafaxine 150 mg tablet,extended 150 mg PO QAM 01/07/23 01/07/23 release 24 hr Previous Rx's Medication Instructions Recorded chlordiazepoxide HCl 25 mg capsule See Rx Instructions .Route 08/12/24 .COMPLEX #20 caps lorazepam 1 mg tablet (Ativan) 1 mg PO HS PRN alcohol withdrawal 08/12/24 #5 tabs Results & Data (ED) Vital Signs Vital Signs - 24 hr 12/29/24 17:44 12/29/24 17:44 12/29/24 17:51 Temperature 36.6 C Temperature Source Temporal Artery Scan Pulse Rate 95 H Pulse Rate [Left] 99 H Respiratory Rate 20 22 Respiratory Depth Shallow Blood Pressure 157/91 H Blood Pressure [Left Arm] 166/102 H Blood Pressure Mean 113 Blood Pressure Mean [Left Arm] 123 Pulse Oximetry 96 96 97 Oxygen Delivery Method Room Air Room Air Room Air Sepsis Recent Fever Within 48 Hours No Sepsis New/Unexplained Change in Mental Status No Sepsis Action Taken by Nursing No Action Required 12/29/24 18:18 Temperature Temperature Source Pulse Rate 93 H Pulse Rate [Left] Respiratory Rate Respiratory Depth Blood Pressure Blood Pressure [Left Arm] Blood Pressure Mean Blood Pressure Mean [Left Arm] Pulse Oximetry Oxygen Delivery Method Sepsis Recent Fever Within 48 Hours Sepsis New/Unexplained Change in Mental Status Sepsis Action Taken by Nursing Laboratory Data 12/29/24 18:16 12/29/24 18:16 Lab Results 12/29/24 12/29/24 Range/Units 18:16 18:30 WBC 5.73 (4.8-10.8) K/ul RBC 4.66 (4.20-5.40) M/uL Hgb 14.2 (12.0-16.0) g/dl Hct 39.9 (37.0-47.0) % MCV 85.6 (80.0-100.0) fL MCH 30.5 (25.0-34.0) pg MCHC 35.6 (32.0-36.0) g/dL RDW Std Deviation 48.8 H (36.4-46.3) fL RDW Coeff of Anjali 15.9 H (11.5-14.5) % Plt Count 200 (130-400) K/uL MPV 9.8 (9.4-12.4) fL Immature Gran % (Auto) 0.2 % Neut % (Auto) 45.3 % Lymph % (Auto) 42.8 % [place] % (Auto) 8.6 % Eos % (Auto) 1.4 % Baso % (Auto) 1.7 % Neut # (Auto) 2.60 (1.40-6.50) K/uL Lymph # (Auto) 2.45 (1.20-3.40) K/uL [place] # (Auto) 0.49 (0.11-0.59) K/uL Eos # (Auto) 0.08 (0.00-0.50) K/uL Baso # (Auto) 0.10 (0.00-0.20) K/uL Immature Gran # (Auto) 0.01 (0.01-0.20) K/uL Sodium 140 (136-145) mmol/L Potassium 3.7 (3.5-5.1) mmol/L Chloride 105 (98-107) mmol/L Carbon Dioxide 21 (21-32) mmol/L Anion Gap 14 H (3-11) BUN 10 (6-23) mg/dl Creatinine 0.62 (0.6-1.2) mg/dl Est Cr Clr Drug Dosing 109.1 ml/min eGFR 110.46 BUN/Creatinine Ratio 16.1 (10-20) Glucose 97 (70-99(Fasting)) mg/dl Calcium 8.9 (8.6-10.3) mg/dl Magnesium 1.9 (1.7-2.4) mg/dl Total Bilirubin 0.9 (0.2-1.0) mg/dl AST 60 H (13-39) U/L ALT 38 (7-52) U/L Alkaline Phosphatase 91 (34-104) U/L Total Protein 7.1 (6.0-8.3) gm/dl Albumin 4.3 (3.4-5.0) gm/dl Globulin 2.8 (2.5-4.0) gm/dl Albumin/Globulin Ratio 1.5 (0.9-2) Lipase 60 (11-82) U/L HCG, Qual Negative (Negative) Urine Color Yellow Urine Appearance Clear (Clear) Urine pH 6.5 (4.5-7.5) Ur Specific [place] 1.007 (1.000-1.030) Urine Protein Negative (Negative) Urine Glucose (UA) Negative (Negative) Urine Ketones Trace H (Negative) Urine Blood Negative (Negative) Urine Nitrite Negative (Negative) Urine Bilirubin Negative (Negative) Urine Urobilinogen Negative (Negative) Ur Leukocyte Esterase Negative (Negative) Urine Comment Salicylates < 3.0 L (3.0-30) mg/dl Acetaminophen < 3 L (10-30) ug/ml Ethyl Alcohol mg/dL 336.5 H (<10.0) mg/dl Administered Medications Discontinued Medications Diazepam (Diazepam 5 Mg/Ml 10ml Vial) 10 mg IV NOW STA Stop: 12/29/24 19:00 Last Admin: 12/29/24 19:05 Dose: 10 mg Documented By: HARLEY Doxycycline Hyclate (Doxycycline Hyclate 100 Mg Cap) 200 mg PO NOW STA Stop: 12/29/24 18:42 Last Admin: 12/29/24 18:44 Dose: 200 mg Documented By: BS Thiamine HCl 100 mg/ Syringe 10 mls @ 2 mls/min IV NOW STA Stop: 12/29/24 18:00 Last Admin: 12/29/24 18:28 Dose: 2 mls/min Documented By: HARLEY Folic Acid 1 mg/ Syringe 10 mls @ 5 mls/min IV NOW STA Stop: 12/29/24 17:57 Last Admin: 12/29/24 18:28 Dose: 5 mls/min Documented By: HARLEY Sodium Chloride (Nss) 1,000 mls @ 999 mls/hr IV .Q1H1M ONE Stop: 12/29/24 18:56 Last Admin: 12/29/24 18:28 Dose: 999 mls/hr Documented By: HARLEY Famotidine (Pepcid 20mg Iv Push) 20 mg in 5 mls @ 2.5 mls/min IV NOW STA Stop: 12/29/24 18:07 Last Admin: 12/29/24 18:27 Dose: 2.5 mls/min Documented By: HARLEY Lorazepam (Lorazepam 2 Mg/1 Ml Vial) 1 mg IV NOW STA Stop: 12/29/24 18:07 Last Admin: 12/29/24 18:27 Dose: 1 mg Documented By: HARLEY Ondansetron HCl (Ondansetron Inj 2 Mg/Ml 2 Ml Vial) 4 mg IV NOW STA Stop: 12/29/24 18:07 Last Admin: 12/29/24 18:27 Dose: 4 mg Documented By: HARLEY Discharge Plan Visit Data Chief Complaint: Detox Request Stated Complaint: DETOX ED Provider: Sloan Snell Discharge Problem: Alcoholic intoxication, Tick bite Patient Disposition: Being Evaluated by Hospitalist Condition: Fair Forms Stand Alone Forms: [facility], Suicide Prevention Resources Prescriptions Prescriptions: No Action hydroxyzine HCl 10 mg tablet 5 - 20 mg PO TID PRN (Reason: Anxiety) Rx Instructions: pt usually takes 10 mg every night rosuvastatin 5 mg tablet 5 mg PO Q OTHER DAY cholecalciferol (vitamin D3) 50 mcg (2,000 unit) capsule 2,000 unit PO DAILY venlafaxine 150 mg tablet extended release 24hr 150 mg PO QAM chlordiazepoxide HCl 25 mg capsule See Rx Instructions .ROUTE .COMPLEX Qty: 20 0RF Rx Instructions: 50 mg orally ;Take 2 tablets (50 mg) every 6 hours on the first day. Then take 2 tablets every 8 hours on the second day. Then take 2 tablets twice a day on the third day. Then take 1 tablet before bed on the fourth day lorazepam [Ativan] 1 mg tablet 1 mg PO HS PRN (Reason: alcohol withdrawal) Qty: 5 0RF Referrals Referrals: Rayne Rivera MD [Primary Care Provider] - Discharge Problem: Alcoholic intoxication Qualifiers: Complication of substance-induced condition: uncomplicated Qualified Code(s): F 10.920 - Alcohol use, unspecified with intoxication, uncomplicated Tick bite Qualifiers: Encounter type: initial encounter
[2024-12-29] MEDS: LORazepam 2 MG/1 ML VIAL IV STA (18:27)
[2024-12-29] MEDS: FAMOTIDINE 20MG IV PUSH 20 MG/5 ML SYR IV STA (18:27)
[2024-12-29] MEDS: ONDANSETRON INJ 2 MG/ML 2 ML VIAL IV STA (18:27)
[2024-12-29] MEDS: FOLIC ACID 1 MG in SYRINGE 9.8 ML IV STA (18:28)
[2024-12-29] MEDS: SODIUM CHLORIDE 0.9% 1,000 ML IV ONE (18:28)
[2024-12-29] MEDS: THIAMINE HCL 100 MG in SYRINGE 9 ML IV STA (18:28)
[2024-12-29] MEDS: DOXYCYCLINE HYCLATE 100 MG CAP PO STA (18:44)
[2024-12-29 18:54] LABS: Basophils % (auto) 1.7 %; Eosinophils # (auto) 0.08 K/uL (0.00-0.50); Eosinophils % (auto) 1.4 %; Hematocrit (blood only) 39.9 % (37.0-47.0); Hemoglobin 14.2 g/dl (12.0-16.0); Immature Granulocytes # (auto) 0.01 K/uL (0.01-0.20); Immature Granulocytes % (auto) 0.2 %; Lymphocytes # (auto) 2.45 K/uL (1.20-3.40); Lymphocytes % (auto) 42.8 %; Mean Corpuscular Hemoglobin 30.5 pg (25.0-34.0); Mean Corpuscular Hgb Conc 35.6 g/dL (32.0-36.0); Mean Corpuscular Volume 85.6 fL (80.0-100.0); Mean Platelet Volume 9.8 fL (9.4-12.4); Monocytes # (auto) 0.49 K/uL (0.11-0.59); Monocytes % (auto) 8.6 %; Neutrophils % (auto) 45.3 %; Platelet Count 200 K/uL (130-400); RDW Coefficient of Variation 15.9 % (11.5-14.5); RDW Standard Deviation 48.8 fL (36.4-46.3); Red Blood Count 4.66 M/uL (4.20-5.40); White Blood Count 5.73 K/ul (4.8-10.8)
[2024-12-29 19:03] LABS: Appearance Urine Clear (Clear); Bilirubin Urine Negative (Negative); Blood Urine Negative (Negative); Color Urine Yellow; Glucose Urine UA Negative (Negative); Ketones Urine Trace (Negative); Leukocyte Esterase Urine Negative (Negative); Nitrite Urine Negative (Negative); Protein Urine Negative (Negative); Specific Gravity Urine 1.007 (1.000-1.030); Urobilinogen Urine Negative (Negative); pH Urine 6.5 (4.5-7.5)
[2024-12-29] MEDS: diazePAM 5 MG/ML 10ML VIAL IV STA (19:05)
[2024-12-29 19:12] LABS: Albumin Globulin Ratio 1.5 (0.9-2); Albumin Level 4.3 gm/dl (3.4-5.0); BUN Creatinine Ratio 16.1 (10-20); Bilirubin,Total 0.9 mg/dl (0.2-1.0); Calcium 8.9 mg/dl (8.6-10.3); Creatinine Clr Calc Pharmacy 109.1 ml/min; Globulin 2.8 gm/dl (2.5-4.0); Magnesium 1.9 mg/dl (1.7-2.4); Potassium 3.7 mmol/L (3.5-5.1); Total Protein 7.1 gm/dl (6.0-8.3)
[2024-12-29 19:13] LABS: Pregnancy Test, Serum Negative (Negative)
[2024-12-29 19:20] LABS: Acetaminophen < 3 ug/ml (10-30); Salicylate < 3.0 mg/dl (3.0-30)
[2024-12-29 19:26] LABS: Thyroid Stimulating Hormone 1.052 uIu/ml (0.300-4.500)
[2024-12-29 19:34] LABS: Amphetamines+Metham, Urine Neg (Neg); Barbiturates, Urine Neg (Neg); Benzodiazepine, Urine Neg (Neg); Cocaine, Urine Neg (Neg); Fentanyl, Urine Neg (Neg); MDMA (Ecstacy), Urine Neg (Neg); Marijuana, Urine Neg (Neg); Methadone, Urine Neg (Neg); Opiate, Urine Neg (Neg); Phencyclidine, Urine Neg (Neg)
[2024-12-29 19:42] LABS: INR 0.9 (0.9-1.1); Prothrombin Time 9.7 Seconds (9.0-12.0)
--- NOTE | 2024-12-29 20:21 | History & Physical Report ---
Date of Service December 29, 2024 Assessment & Plan (1) Alcoholic intoxication: Plan: 49-year-old female with past medical history significant for hyperlipidemia, depression, insomnia, anxiety, ongoing alcohol abuse comes to hospital to request for alcohol detox. Patient states she was in alcohol rehab 4 times in the past. Lately has been drinking heavily. Says just came from from [place]. Currently drinking 1 pint of vodka daily. In the ER received Ativan and Valium currently drowsy but arousable. Denies any headache. Denies chest pain. Denies shortness of breath. Denies abdominal pain. Denies nausea. Has smoker's cough. No runny nose or sore throat. No fevers. Normal bowel and bladder movements. As per the ER a tick was found on the right lower back and did not appear severely engorged and was not sure how long this has been there. No surrounding rash seen Patient seems to had history of [place] spotted fever in the past. A single dose of doxycycline was given in the ER for preventive measure. Currently hemodynamics okay. Alcohol intoxication Alcohol detox request Alcohol level 336 No history of alcohol withdrawal seizures as per patient Received Ativan and Valium in the ER Will place on alcohol withdrawal protocol with gabapentin and IV Ativan as needed IV thiamine, IV folic acid and multivitamins Close monitor Tick bite Tick was found on the back. Not sure how long it was there A dose of doxycycline was given in the ER. Lyme screen was negative Hyperlipidemia On statin Depression Anxiety Insomnia Continue home medications DVT prophylaxis Lovenox History of Present Illness Chief Complaint: Alcohol detox request Primary Care Provider: Rayne Rivera MD 49-year-old female with past medical history significant for hyperlipidemia, depression, insomnia, anxiety, ongoing alcohol abuse comes to hospital to request for alcohol detox. Patient states she was in alcohol rehab 4 times in the past. Lately has been drinking heavily. Says just came from from [place]. Currently drinking 1 pint of vodka daily. In the ER received Ativan and Valium currently drowsy but arousable. Denies any headache. Denies chest pain. Denies shortness of breath. Denies abdominal pain. Denies nausea. Has smoker's cough. No runny nose or sore throat. No fevers. Normal bowel and bladder movements. As per the ER a tick was found on the right lower back and did not appear severely engorged and was not sure how long this has been there. No surrounding rash seen Patient seems to had history of [place] spotted fever in the past. A single dose of doxycycline was given in the ER for preventive measure. Currently hemodynamics okay. Past medical history. As mentioned above Past surgical history. Colonoscopy. Colposcopy with cervical biopsy. Dilatation curettage. Hysteroscopy with biopsy. I discussed with endometrial ablation. Fracture of left ankle repair. Laparoscopic fulguration of oviducts. Removal of IUD. Tonsillectomy adenoidectomy. Social history. Smokes 1 pack a day. Currently drinking 1 pint of vodka daily. Denies any drug use. Family history. Father has heart disorder. Hypertension. Prostate cancer. Mother has hypertension. Maternal grandmother had colon cancer. Allergies Allergy/AdvReac Type Severity Reaction Status Date / Time No Known Allergies Allergy NONE Verified 12/29/24 19:24 Home Medications Medication Instructions Recorded Confirmed Type rosuvastatin 5 mg tablet 5 mg PO Q OTHER DAY 01/07/23 12/29/24 History buspirone 10 mg tablet 20 mg PO TID 12/29/24 12/29/24 History desvenlafaxine succinate 25 mg 25 mg PO DAILY 12/29/24 12/29/24 History tablet,extended release 24 hr desvenlafaxine succinate 50 mg 50 mg PO DAILY 12/29/24 12/29/24 History tablet,extended release 24 hr hydroxyzine HCl 50 mg tablet 50 mg PO Q8 PRN Anxiety 12/29/24 12/29/24 History naltrexone 50 mg tablet 50 mg PO QAM 12/29/24 12/29/24 History trazodone 100 mg tablet 100 mg PO HS PRN Sleep 12/29/24 12/29/24 History Past Med/Surg History Problem List (Updated 12/29/24 @ 19:24 by Sloan Snell M.D.) Tick bite (Acute) Alcoholic intoxication (Acute) Nicotine dependence Rash and nonspecific skin eruption (Acute) Urinary tract infection Pyelonephritis (Acute) Displaced fracture of fifth metatarsal bone of left foot (Acute) Medical History (Updated 12/29/24 @ 19:24 by Sloan Snell M.D.) Nicotine dependence Surgical History S/P tonsillectomy History of ankle surgery Social History Smoking Status: Current every day smoker Tobacco Type: Cigarettes Cigarettes Per Day: 1 pack; Hx Alcohol Use: Yes Alcohol type: hard liquor Hx Substance Use: No Preferred Language: Sami Communication Ability: Effective Tdp Displays Analyst Required: No Beliefs That Will Affect Care: None Current Living Situation: Alone Feels Safe at Home: Yes Assistive Devices: None Review of Systems Review of Systems: All systems reviewed & are unremarkable except as noted in HPI & below Physical Exam Physical Exam: General- Drowsy but arousable. Head- atraumatic Eyes- PERRL. ENT- oropharynx clear Neck- supple, no JVD. Lungs- clear to auscultation no wheezing or crackles. Heart- regular rhythm; no murmur, no gallop. Abdomen- normal bowel sounds, soft, nontender, no distension Extremities- no pretibial edema, no erythema seen Neuro- Drowsy but arousable PERRL, no facial palsy; no dysarthria; moves extremities Results & Data Results & Data Vital Signs (Past 12 Hours) Vital Signs Temp Pulse Pulse Resp BP BP Pulse Ox 12/29/24 19:44 97 H 20 110/73 98 12/29/24 18:18 93 H 12/29/24 17:51 36.6 C 95 H 22 157/91 H 97 12/29/24 17:44 99 H 20 166/102 H 96 12/29/24 17:44 96 O2 Del Method 12/29/24 19:44 Room Air 12/29/24 18:18 12/29/24 17:51 Room Air 12/29/24 17:44 Room Air 12/29/24 17:44 Room Air Diagnostic Findings Laboratory Results WBC 5.73 K/ul (4.8-10.8) 12/29/24 18:16 RBC 4.66 M/uL (4.20-5.40) 12/29/24 18:16 Hgb 14.2 g/dl (12.0-16.0) 12/29/24 18:16 Hct 39.9 % (37.0-47.0) 12/29/24 18:16 MCV 85.6 fL (80.0-100.0) 12/29/24 18:16 MCH 30.5 pg (25.0-34.0) 12/29/24 18:16 MCHC 35.6 g/dL (32.0-36.0) 12/29/24 18:16 RDW Std Deviation 48.8 fL (36.4-46.3) H 12/29/24 18:16 RDW Coeff of Anjali 15.9 % (11.5-14.5) H 12/29/24 18:16 Plt Count 200 K/uL (130-400) 12/29/24 18:16 MPV 9.8 fL (9.4-12.4) 12/29/24 18:16 Immature Gran % (Auto) 0.2 % 12/29/24 18:16 Neut % (Auto) 45.3 % 12/29/24 18:16 Lymph % (Auto) 42.8 % 12/29/24 18:16 [place] % (Auto) 8.6 % 12/29/24 18:16 Eos % (Auto) 1.4 % 12/29/24 18:16 Baso % (Auto) 1.7 % 12/29/24 18:16 Neut # (Auto) 2.60 K/uL (1.40-6.50) 12/29/24 18:16 Lymph # (Auto) 2.45 K/uL (1.20-3.40) 12/29/24 18:16 [place] # (Auto) 0.49 K/uL (0.11-0.59) 12/29/24 18:16 Eos # (Auto) 0.08 K/uL (0.00-0.50) 12/29/24 18:16 Baso # (Auto) 0.10 K/uL (0.00-0.20) 12/29/24 18:16 Immature Gran # (Auto) 0.01 K/uL (0.01-0.20) 12/29/24 18:16 PT 9.7 Seconds (9.0-12.0) 12/29/24 18:16 INR 0.9 (0.9-1.1) 12/29/24 18:16 Sodium 140 mmol/L (136-145) 12/29/24 18:16 Potassium 3.7 mmol/L (3.5-5.1) 12/29/24 18:16 Chloride 105 mmol/L (98-107) 12/29/24 18:16 Carbon Dioxide 21 mmol/L (21-32) 12/29/24 18:16 Anion Gap 14 (3-11) H 12/29/24 18:16 BUN 10 mg/dl (6-23) 12/29/24 18:16 Creatinine 0.62 mg/dl (0.6-1.2) 12/29/24 18:16 Est Cr Clr Drug Dosing 109.1 ml/min 12/29/24 18:16 eGFR 110.46 12/29/24 18:16 BUN/Creatinine Ratio 16.1 (10-20) 12/29/24 18:16 Glucose 97 mg/dl (70-99(Fasting)) 12/29/24 18:16 Calcium 8.9 mg/dl (8.6-10.3) 12/29/24 18:16 Magnesium 1.9 mg/dl (1.7-2.4) 12/29/24 18:16 Total Bilirubin 0.9 mg/dl (0.2-1.0) 12/29/24 18:16 AST 60 U/L (13-39) H 12/29/24 18:16 ALT 38 U/L (7-52) 12/29/24 18:16 Alkaline Phosphatase 91 U/L (34-104) 12/29/24 18:16 Total Protein 7.1 gm/dl (6.0-8.3) 12/29/24 18:16 Albumin 4.3 gm/dl (3.4-5.0) 12/29/24 18:16 Globulin 2.8 gm/dl (2.5-4.0) 12/29/24 18:16 Albumin/Globulin Ratio 1.5 (0.9-2) 12/29/24 18:16 Lipase 60 U/L (11-82) 12/29/24 18:16 TSH 1.052 uIu/ml (0.300-4.500) 12/29/24 18:16 HCG, Qual Negative (Negative) 12/29/24 18:16 Urine Color Yellow 12/29/24 18:30 Urine Appearance Clear (Clear) 12/29/24 18:30 Urine pH 6.5 (4.5-7.5) 12/29/24 18:30 Ur Specific [place] 1.007 (1.000-1.030) 12/29/24 18:30 Urine Protein Negative (Negative) 12/29/24 18:30 Urine Glucose (UA) Negative (Negative) 12/29/24 18:30 Urine Ketones Trace (Negative) H 12/29/24 18:30 Urine Blood Negative (Negative) 12/29/24 18:30 Urine Nitrite Negative (Negative) 12/29/24 18:30 Urine Bilirubin Negative (Negative) 12/29/24 18:30 Urine Urobilinogen Negative (Negative) 12/29/24 18:30 Ur Leukocyte Esterase Negative (Negative) 12/29/24 18:30 Urine Comment 12/29/24 18:30 Salicylates < 3.0 mg/dl (3.0-30) L 12/29/24 18:16 Urine Opiates Screen Neg (Neg) 12/29/24 18:30 Ur Methadone, Qual Neg (Neg) 12/29/24 18:30 Urine Fentanyl Screen Neg (Neg) 12/29/24 18:30 Acetaminophen < 3 ug/ml (10-30) L 12/29/24 18:16 Urine Barbiturates Neg (Neg) 12/29/24 18:30 Ur Phencyclidine (PCP) Neg (Neg) 12/29/24 18:30 U Amphetamin/Meth Scrn Neg (Neg) 12/29/24 18:30 MDMA (Ecstasy) Screen Neg (Neg) 12/29/24 18:30 U Benzodiazepines Scrn Neg (Neg) 12/29/24 18:30 Ur Cocaine Metabolite Neg (Neg) 12/29/24 18:30 U Marijuana (THC) Screen Neg (Neg) 12/29/24 18:30 Ethyl Alcohol mg/dL 336.5 mg/dl (<10.0) H 12/29/24 18:16 Anaplasma Smear See Comment 12/29/24 18:56 Babesia Smear See Comment 12/29/24 18:56 Lyme Disease Screen Negative (Negative) 12/29/24 18:16 SARS-CoV-2, RNA, NAAT NEGATIVE (NEGATIVE) 12/29/24 18:30 ECG Additional Comments: ECG. Normal sinus rhythm rate of 73. No significant change was found. Code Status & VTE Plan VTE Prophylaxis Plan VTE Prophylaxis will be ordered: Yes (1) Alcoholic intoxication Complication of substance-induced condition: uncomplicated Qualified Code(s): F10.920 - Alcohol use, unspecified with intoxication, uncomplicated
[2024-12-29] MEDS ORDERED: LORazepam 2 MG/1 ML VIAL IV PRN ×3 (21:52)
[2024-12-29] MEDS ORDERED: Ativan IV Alcohol Withdrawal--Active Protocol IV PRN (21:52)
[2024-12-29] MEDS ORDERED: NITROGLYCERIN SL 0.4 MG/TAB TAB SL PRN (21:52)
[2024-12-29] MEDS ORDERED: GABAPENTIN 1200MG ALCOHOL WITHDRAWAL LOAD PO STA (21:52)
[2024-12-29] MEDS ORDERED: hydrOXYzine HCl 25 MG TAB PO PRN (21:52)
[2024-12-29] MEDS: SODIUM CHLORIDE 0.9% 1,000 ML IV SCH (22:07)
[2024-12-29] MEDS: GABAPENTIN 600 MG TAB PO ONE (22:10)
[2024-12-29] MEDS: busPIRone 5 MG TAB PO SCH (22:10)
[2024-12-29] MEDS: ENOXAPARIN INJ 40 MG/0.4 ML SYR SQ SCH (22:12)
[2024-12-29] MEDS: traZODone HCL 100 MG TAB PO PRN (22:48)
[2024-12-30] MEDS: GABAPENTIN 600 MG TAB PO SCH ×2 (02:28→16:11)
[2024-12-30 06:39] LABS: Basophils # (auto) 0.05 K/uL (0.00-0.20); Eosinophils # (auto) 0.13 K/uL (0.00-0.50); Eosinophils % (auto) 2.7 %; Hematocrit (blood only) 36.8 % (37.0-47.0); Hemoglobin 12.6 g/dl (12.0-16.0); Immature Granulocytes # (auto) 0.01 K/uL (0.01-0.20); Immature Granulocytes % (auto) 0.2 %; Lymphocytes # (auto) 1.89 K/uL (1.20-3.40); Lymphocytes % (auto) 39.5 %; Mean Corpuscular Hemoglobin 30.7 pg (25.0-34.0); Mean Corpuscular Hgb Conc 34.2 g/dL (32.0-36.0); Mean Corpuscular Volume 89.5 fL (80.0-100.0); Mean Platelet Volume 9.9 fL (9.4-12.4); Monocytes # (auto) 0.45 K/uL (0.11-0.59); Monocytes % (auto) 9.4 %; Neutrophils # (auto) 2.25 K/uL (1.40-6.50); Neutrophils % (auto) 47.2 %; Platelet Count 162 K/uL (130-400); RDW Coefficient of Variation 16.3 % (11.5-14.5); RDW Standard Deviation 53.1 fL (36.4-46.3); Red Blood Count 4.11 M/uL (4.20-5.40); White Blood Count 4.78 K/ul (4.8-10.8)
[2024-12-30 07:05] LABS: Albumin Level 3.7 gm/dl (3.4-5.0); Bilirubin Direct 0.2 mg/dl (0-0.2); Calcium 7.6 mg/dl (8.6-10.3); Creatinine Clr Calc Pharmacy 112.7 ml/min; Magnesium 1.6 mg/dl (1.7-2.4); Potassium 3.6 mmol/L (3.5-5.1); Total Protein 5.6 gm/dl (6.0-8.3)
[2024-12-30 07:24] LABS: Folate (Folic Acid),Ser orPlas 19.94 ng/ml (>5.38)
[2024-12-30] MEDS: DEXTROSE 50% 50 ML SYRINGE IV STA (08:34)
[2024-12-30] MEDS: POTASSIUM CHLORIDE 40 MEQ in D5W AND NSS 1,000 ML IV SCH (08:41)
[2024-12-30] MEDS ORDERED: THIAMINE HCL 100 MG in SYRINGE 9 ML IV SCH (09:00)
[2024-12-30] MEDS: THIAMINE HCL 200 MG in SODIUM CHLORIDE 0.9% 50 ML IV SCH (09:20)
[2024-12-30] MEDS: DOXYCYCLINE HYCLATE 100 MG CAP PO SCH (09:20)
[2024-12-30] MEDS: ROSUVASTATIN CALCIUM 5 MG TAB PO SCH (09:20)
[2024-12-30] MEDS: FOLIC ACID 1 MG in SYRINGE 9.8 ML IV SCH (09:20)
[2024-12-30] MEDS: MULTIVITAMIN TAB PO SCH (09:20)
[2024-12-30] MEDS ORDERED: NICOTINE POLACRILEX 2 MG GUM MT PRN (10:27)
[2024-12-30] MEDS: diazePAM 5 MG TABLET PO SCH (10:39)
--- NOTE | 2024-12-30 11:54 | Hospitalist Progress Note ---
Date of Service December 30, 2024 Assessment & Plan (1) Alcoholic intoxication: Plan: 49-year-old female with past medical history significant for hyperlipidemia, depression, insomnia, anxiety, ongoing alcohol abuse comes to hospital to request for alcohol detox. Alcohol intoxication Alcohol use disorder Alcohol withdrawal Patient came to the hospital with blood alcohol level of 336 Mg per DL History of recent increase in alcohol use Continue on alcohol withdrawal protocol; placed on Valium scheduled, IV Ativan and gabapentin Continue on IV fluids, thiamine Continue naltrexone on discharge Hypoglycemiathe patient was found to be hypoglycemic in the a.m. of December 30, 2024; given dextrose. Monitor for hypoglycemia. Continue on IV fluids Recent tick bite- patient was found to have tick bite on the back; will treat prophylactically with course of doxycycline. Hyperlipidemia On statin,continue Depression Anxiety Insomnia Continue home medications DVT prophylaxis Lovenox Time spent evaluating patient, direct bedside care, chart review, placing orders, interpretation of diagnostic studies, discussion with consultants, patient, and family members, as well as other required patient management activities is 50 minutes Please note the above document was generated using voice recognition software. It may contain grammatical, syntax or spelling errors. Any formal questions or concerns about the content, text or information contained within the body of this dictation should be directly addressed to the provider for clarification Admission and Anticipated Discharge Date Admission Date: December 29, 2024 Subjective Patient seen and examined at bedside. She reports some tremors; he denies any auditory/visual hallucinations Review of Systems Review of Systems: All systems reviewed & are unremarkable except as noted in Subjective Physical Exam Physical Exam: Constitutional: Awake, alert oriented x 3; not in distress. Has bilateral tremors in upper extremities Respiratory: normal respiratory effort, lungs clear to auscultation, no wheeze, rales, rhonchi. Normal insp/exp effort, no accessory muscle use Cardiovascular: RRR, no murmur, no edema Vessels: no JVD or carotid bruit Chest: normal inspection of chest Abdomen: normal bowel sounds, soft, nontender, no hepatosplenomegaly Musculoskeletal: no cyanosis or clubbing, extremities motor strength 5/5 Skin: no rashes, warm and dry normal turgor Neurologic: PERRL, EOMI, accommodation nl, no face palsy, no dysarthria CN's II- XI intact bilaterally and moves all extremities Results & Data Results & Data Vital Signs (Past 12 Hours) Vital Signs Temp Pulse Resp BP Pulse Ox O2 Del Method 12/30/24 11:21 37.1 C 83 18 103/67 93 Room Air 12/30/24 11:14 36.7 C 75 18 115/68 98 Room Air 12/30/24 08:17 37.0 C 78 17 107/65 96 Room Air 12/30/24 03:15 36.4 C L 70 18 101/57 L 95 Room Air (1) Alcoholic intoxication Complication of substance-induced condition: uncomplicated Qualified Code(s): F10.920 - Alcohol use, unspecified with intoxication, uncomplicated
[2024-12-31 08:03] LABS: Basophils # (auto) 0.03 K/uL (0.00-0.20); Basophils % (auto) 0.8 %; Eosinophils # (auto) 0.14 K/uL (0.00-0.50); Eosinophils % (auto) 3.7 %; Hematocrit (blood only) 35.3 % (37.0-47.0); Immature Granulocytes # (auto) 0.01 K/uL (0.01-0.20); Immature Granulocytes % (auto) 0.3 %; Lymphocytes # (auto) 1.48 K/uL (1.20-3.40); Lymphocytes % (auto) 39.5 %; Mean Corpuscular Hemoglobin 30.3 pg (25.0-34.0); Mean Corpuscular Volume 89.1 fL (80.0-100.0); Mean Platelet Volume 10.6 fL (9.4-12.4); Monocytes # (auto) 0.42 K/uL (0.11-0.59); Monocytes % (auto) 11.2 %; Neutrophils # (auto) 1.67 K/uL (1.40-6.50); Neutrophils % (auto) 44.5 %; Platelet Count 144 K/uL (130-400); RDW Coefficient of Variation 16.2 % (11.5-14.5); RDW Standard Deviation 52.1 fL (36.4-46.3); Red Blood Count 3.96 M/uL (4.20-5.40); White Blood Count 3.75 K/ul (4.8-10.8)
[2024-12-31 08:22] LABS: BUN Creatinine Ratio 11.3 (10-20); Calcium 7.9 mg/dl (8.6-10.3); Creatinine Clr Calc Pharmacy 109.1 ml/min; Potassium 4.1 mmol/L (3.5-5.1)
--- NOTE | 2024-12-31 10:23 | Discharge Summary ---
Date of Service December 31, 2024 Admission HPI Per Admitting Provider 49-year-old female with past medical history significant for hyperlipidemia, depression, insomnia, anxiety, ongoing alcohol abuse comes to hospital to request for alcohol detox. Patient states she was in alcohol rehab 4 times in the past. Lately has been drinking heavily. Says just came from from [place]. Currently drinking 1 pint of vodka daily. In the ER received Ativan and Valium currently drowsy but arousable. Denies any headache. Denies chest pain. Denies shortness of breath. Denies abdominal pain. Denies nausea. Has smoker's cough. No runny nose or sore throat. No fevers. Normal bowel and anthony dder movements. As per the ER a tick was found on the right lower back and did not appear severely engorged and was not sure how long this has been there. No surrounding rash seen Patient seems to had history of [place] spotted fever in the past. A single dose of doxycycline was given in the ER for preventive measure. Currently hemodynamics okay. Past medical history. As mentioned above Past surgical history. Colonoscopy. Colposcopy with cervical biopsy. Dilatation curettage. Hysteroscopy with biopsy. I discussed with endometrial ablation. Fracture of left ankle repair. Laparoscopic fulguration of oviducts. Removal of IUD. Tonsillectomy adenoidectomy. Social history. Smokes 1 pack a day. Currently drinking 1 pint of vodka daily. Denies any drug use. Family history. Father has heart disorder. Hypertension. Prostate cancer. Mother has hypertension. Maternal grandmother had colon cancer. Admission Exam Per Admitting Provider General- Drowsy but arousable. Head- atraumatic Eyes- PERRL. ENT- oropharynx clear Neck- supple, no JVD. Lungs- clear to auscultation no wheezing or crackles. Heart- regular rhythm; no murmur, no gallop. Abdomen- normal bowel sounds, soft, nontender, no distension Extremities- no pretibial edema, no erythema seen Neuro- Drowsy but arousable PERRL, no facial palsy; no dysarthria; moves extremities Principal Diagnosis Alcohol intoxication Alcohol use disorder Alcohol withdrawal Discharge Exam Constitutional: Awake, alert oriented x 3; not in distress. no tremors Respiratory: normal respiratory effort, lungs clear to auscultation, no wheeze, rales, rhonchi. Normal insp/exp effort, no accessory muscle use Cardiovascular: RRR, no murmur, no edema Vessels: no JVD or carotid bruit Chest: normal inspection of chest Abdomen: normal bowel sounds, soft, nontender, no hepatosplenomegaly Musculoskeletal: no cyanosis or clubbing, extremities motor strength 5/5 Skin: no rashes, warm and dry normal turgor Neurologic: PERRL, EOMI, accommodation nl, no face palsy, no dysarthria CN's II- XI intact bilaterally and moves all extremities Discharge Data Allergies Allergy/AdvReac Type Severity Reaction Status Date / Time No Known Allergies Allergy NONE Verified 12/29/24 19:24 Consultations 12/29/24 19:18 ED Decision to Admit Stat Hospital Course (1) Alcoholic intoxication: 49-year-old female with past medical history significant for hyperlipidemia, depression, insomnia, anxiety, ongoing alcohol abuse comes to hospital to request for alcohol detox. Alcohol intoxication Alcohol use disorder Alcohol withdrawal Patient came to the hospital with blood alcohol level of 336 Mg per DL History of recent increase in alcohol use Patient was admitted to medical floor; was started on alcohol withdrawal protocol IV fluids. Patient reported significant improvement in her withdrawal symptoms with decreasing tremors. She did not have any auditory/visual hallucination. Patient reported she was feeling much better and wanted to go home. Patient recommended to restart naltrexone. Patient to follow-up with PCP after discharge. Recent tick bite- patient was found to have tick bite on the back; will treat prophylactically with course of doxycycline. Monitor for fever, myalgia and weakness. Please note the above document was generated using voice recognition software. It may contain grammatical, syntax or spelling errors. Any formal questions or concerns about the content, text or information contained within the body of this dictation should be directly addressed to the provider for clarification Total Time Total Time Spent Total Time Spent (In Minutes): 45 Total Time Includes: Examination of the Patient, Discharge Planning, Medication Reconciliation, Communication With Other Providers and Other Discharge Plan Discharge Items Patient Disposition: Home - Self-Care Reason For Visit: ALCHOL DETOX Discharge Diagnosis: Alcohol intoxication Alcohol use disorder Alcohol withdrawal Condition on Discharge: Fair Activity: Resume your previous activity Non-emergency contact: Primary Care Provider Call non-emergency contact if: you have any medication questions and your symptoms worsen Follow-up/Referrals: Rayne Rivera MD [Primary Care Provider] - (Date & Time 01/08/2025 9:00 AM Provider: Rayne Rivera MD Family Medicine [facility]) Diet: Regular Addtl Attending Provider Instructions: You were admitted to the hospital due to alcohol intoxication and underwent treatment for detox. Please continue to abstain from alcohol use. You were found to have tick on your back; you were prescribed prophylactic doxycycline to be taken for 9 more days to complete the course. Pending Studies at Discharge: No Stand-Alone Forms: My [facility], Smoking Cessation Medications and DC Order Prescriptions: New doxycycline hyclate 100 mg Capsule 100 mg PO BID 9 Days Qty: 18 0RF Continued rosuvastatin 5 mg tablet 5 mg PO Q OTHER DAY trazodone 100 mg tablet 100 mg PO HS PRN (Reason: Sleep) buspirone 10 mg tablet 20 mg PO TID Rx Instructions: TAKE 2 TABLETS IN MORNING,NOON AND BEFORE BED hydroxyzine HCl 50 mg tablet 50 mg PO Q8 PRN (Reason: Anxiety) naltrexone 50 mg tablet 50 mg PO QAM desvenlafaxine succinate 50 mg tablet extended release 24 hr 50 mg PO DAILY desvenlafaxine succinate 25 mg tablet extended release 24 hr 25 mg PO DAILY Discharge Orders: Discharge Order (Routine); Ordered 12/31/24 Ordered By: Ashwin Galarza Admission Data Admit Date/Time: 12/29/24 20:04 Attending Provider: Ashwin Galarza Admit Provider: Aldo Buenrostro Primary Care Provider: Rayne Rivera Other Providers: Aldo Buenrostro
--- NOTE | 2024-12-31 13:22 | Electrocardiogram Report ---
Test Reason : Blood Pressure : */* mmHG Vent. Rate : 73 BPM Atrial Rate : 73 BPM P-R Int : 124 ms QRS Dur : 82 ms QT Int : 420 ms P-R-T Axes : 73 81 68 degrees QTcB Int : 462 ms Normal sinus rhythm Normal ECG When compared with ECG of 12-Aug-2024 14:10, No significant change was found Confirmed by Ron Nieto ([id number]) on 12/31/2024 1:22:42 PM Referred By: REFERRED SELF Confirmed By: Ron Nieto
[2024-12-31 16:37] VITALS: BP 124/80; RESP 18; TEMP 98.2; O2SAT 97
[2024-12-31 18:25] VITALS: PULSE 71
[2024-12-31] MEDS ORDERED: GABAPENTIN 600 MG TAB PO SCH (20:15)
[2025-01-02] MEDS ORDERED: GABAPENTIN 600 MG TAB PO SCH (08:15)
[2025-01-03 05:53] LABS: Babesia microti DNA Not Detected (Not Detected)
== END 2024-12-31 19:43 | disposition home or self-care (01) | DRG 897 ==
LOC: ED 17:44 → INTOOBSV 20:04 → 2N 20:04

== ENCOUNTER 2025-01-10 15:47 | Observation (INO) ==
[2025-01-10 16:34] LABS: Hemoglobin 13.7 g/dl (12.0-16.0); Mean Corpuscular Hemoglobin 30.5 pg (25.0-34.0); Mean Corpuscular Hgb Conc 34.3 g/dL (32.0-36.0); Mean Corpuscular Volume 89.1 fL (80.0-100.0); Mean Platelet Volume 9.2 fL (9.4-12.4); Platelet Count 400 K/uL (130-400); RDW Coefficient of Variation 17.1 % (11.5-14.5); RDW Standard Deviation 55.3 fL (36.4-46.3); Red Blood Count 4.49 M/uL (4.20-5.40); White Blood Count 6.95 K/ul (4.8-10.8)
[2025-01-10 16:47] LABS: Pregnancy Test, Serum Negative (Negative)
[2025-01-10] MEDS: LORazepam 1 MG TAB SL STA (16:52)
[2025-01-10 16:56] LABS: Albumin Globulin Ratio 1.7 (0.9-2); Albumin Level 4.5 gm/dl (3.4-5.0); BUN Creatinine Ratio 16.7 (10-20); Bilirubin,Total 0.4 mg/dl (0.2-1.0); Creatinine Clr Calc Pharmacy 102.5 ml/min; Globulin 2.7 gm/dl (2.5-4.0); Potassium 3.9 mmol/L (3.5-5.1); Total Protein 7.2 gm/dl (6.0-8.3)
[2025-01-10 17:14] LABS: Basophils # (auto) 0.17 K/uL (0.00-0.20); Basophils % (auto) 2.4 %; Eosinophils # (auto) 0.12 K/uL (0.00-0.50); Eosinophils % (auto) 1.7 %; Immature Granulocytes # (auto) 0.02 K/uL (0.01-0.20); Immature Granulocytes % (auto) 0.3 %; Lymphocytes # (auto) 3.78 K/uL (1.20-3.40); Lymphocytes % (auto) 54.4 %; Monocytes # (auto) 0.48 K/uL (0.11-0.59); Monocytes % (auto) 6.9 %; Neutrophils # (auto) 2.38 K/uL (1.40-6.50); Neutrophils % (auto) 34.3 %; Target Cells 1+
[2025-01-10] MEDS: LORazepam 2 MG/1 ML VIAL IM PRN (17:27)
--- NOTE | 2025-01-10 18:27 | Emergency Department Note ---
Impression & Plan Alcoholic intoxication ED Provider Note ED Provider Note NAME: KATIA WILKS AGE:49 SEX: Female : 1975 ARRIVES VIA: Private vehicle INFORMANT: Patient ED PROVIDER(s): Deb Bull DO CHIEF COMPLAINT: Alcohol abuse, wants detox HPI: This is a 49-year-old female who presents emergency department stating in triage that she drinks 1/5 of vodka daily and she wants detox. There was no one accompanying the patient. Upon my bedside evaluation she stated she did not know why she was here and that I should "call her brother". She states her last drink was 2 days ago. She states she was recently in the hospital 2 weeks ago. She denies any recent travel. She states she used to drink vodka. Patient states she does not take any other medications. She denies any pain or complaints. She does not recall how she arrived at the emergency department or why she is here. PAST MEDICAL HISTORY:See Below PAST SURGICAL HISTORY:See Below FAMILY HISTORY:See Below SOCIAL HISTORY:See Below HOME MEDICATIONS:See Below ALLERGIES:See Below VITALS:See Below PHYSICAL EXAMINATION: GENERAL: alert, well appearing, well nourished, no distress, non-toxic EYE EXAM: normal conjunctiva, PERRL and EOM's grossly intact OROPHARYNX: no exudate, no erythema, lips, buccal mucosa, and tongue normal and mucous membranes are dry NECK: supple, no nuchal rigidity, no adenopathy, non-tender LUNGS: Clear to auscultation. Normal chest wall mechanics, no w/r/r HEART: no murmurs, S1 normal and S2 normal ABDOMEN: abdomen soft, non-tender, normo-active bowel sounds, no masses, no rebound or guarding. BACK: Back is symmetrical on inspection and there is no deformity, no midline tenderness, no CVA tenderness. SKIN: no rashes, petechiae, orbruising UPPER EXTREMITIES: upper extremities are grossly normal. FROM, nml pulses b/l. LOWER EXTREMITIES: No pitting edema. FROM, nml pulses b/l. NEURO EXAM: Awake, alert, follows commands, confused to recent events, cranial nerves II-XII grossly intact, normal speech, no facial droop,nogross weakness of arms, no gross weakness of legs. Gross sensation intact. No ataxia. Vital Signs: reviewed and remarkable Differential Diagnosis: alcohol intoxication, substance abuse, hypoglycemia, electrolyte abnormalities, dysrhythmia, dehydration, CHI, ICH, as well as others were entertained. MEDICAL DECISION MAKING: This is a 49-year-old female who presents emergency department initially requesting alcohol intoxication. Patient for me did not know why she was here. Labs drawn and sent, IV established, and patient placed on telemetry. Patient initially became agitated and was given sublingual Ativan after she ripped out her IV and kept trying to get out of bed. Given the significant alcohol intoxication that was found, security was called and a as needed for IM Ativan also placed. Given patient also needed one-to-one she was moved back to another area of the emergency department where one-to-one was more feasible given staffing. Patient given IV fluids, IV folic acid and IV thiamine additionally. Patient had no new or evolving symptoms of acute alcohol withdrawal on monitor in the ER. Given significant levels of intoxication, and increased risk of significant alcohol withdrawal, case discussed with the hospitalist team for additional evaluation and management. Consultation(s): 183: Discussed with [facility] hospitalist team for additional evaluation and management. ER Treatment Provided: See below Diagnostics Interpreted By Me: -Cardiac Monitoring: An order was placed for continuous cardiac monitoring. The monitor shows a rate of 102 with sinus tachycardia rhythm. -Laboratory studies: As stated above and show below. -Imaging studies: Triage Nursing Note Reviewed Prior/Outside Records Reviewed - recent DC summary from 12/31/24 reviewed Past Med/Surg History Problem List (Updated 01/10/25 @ 18:39 by ESAU Mcknight) Anxiety Hyperlipidemia Tick bite (Acute) Alcoholic intoxication (Acute) Nicotine dependence Rash and nonspecific skin eruption (Acute) Urinary tract infection Pyelonephritis (Acute) Displaced fracture of fifth metatarsal bone of left foot (Acute) Medical History (Updated 01/10/25 @ 18:39 by ESAU Mcknight) Nicotine dependence Surgical History S/P tonsillectomy History of ankle surgery Social History Smoking Status: Current every day smoker Tobacco Type: Cigarettes Cigarettes Per Day: 20 per day; Hx Alcohol Use: Yes Alcohol type: hard liquor Hx Substance Use: Yes Last Used Substance: Unknown Preferred Language: [place]ian Communication Ability: Impaired Orchid Hand Required: No Beliefs That Will Affect Care: None Current Living Situation: Alone Other Information That Helps Us Care for You: No Feels Safe at Home: Yes Safety Concerns: Feels Safe At This Time Assistive Devices: Glasses Allergies Allergies Allergy/AdvReac Type Severity Reaction Status Date / Time No Known Allergies Allergy NONE Verified 12/29/24 19:24 Home Meds Home Medications Medication Instructions Recorded Confirmed buspirone 10 mg tablet 20 mg PO TID 12/29/24 01/10/25 desvenlafaxine succinate 25 mg 25 mg PO DAILY 12/29/24 01/10/25 tablet,extended release 24 hr desvenlafaxine succinate 50 mg 50 mg PO DAILY 12/29/24 01/10/25 tablet,extended release 24 hr hydroxyzine HCl 50 mg tablet 50 mg PO Q8 PRN Anxiety 12/29/24 01/10/25 naltrexone 50 mg tablet 50 mg PO QAM 12/29/24 01/10/25 trazodone 100 mg tablet 100 mg PO HS PRN Sleep 12/29/24 01/10/25 Results & Data (ED) Vital Signs Vital Signs - 24 hr 01/10/25 15:54 01/10/25 16:20 Temperature 36.9 C Temperature Source Temporal Artery Scan Pulse Rate 109 H Respiratory Rate 16 Respiratory Effort / Characteristics Non-Labored Spontaneous Respiratory Depth Normal Respiratory Pattern Regular Blood Pressure 131/89 Blood Pressure Mean 103 Pulse Oximetry 95 96 Oxygen Delivery Method Room Air Room Air Sepsis Recent Fever Within 48 Hours No Sepsis New/Unexplained Change in Mental Status No Sepsis Action Taken by Nursing No Action Required Laboratory Data 01/10/25 16:06 01/10/25 16:06 Lab Results 01/10/25 01/10/25 Range/Units 16:06 16:20 WBC 6.95 (4.8-10.8) K/ul RBC 4.49 (4.20-5.40) M/uL Hgb 13.7 (12.0-16.0) g/dl Hct 40.0 (37.0-47.0) % MCV 89.1 (80.0-100.0) fL MCH 30.5 (25.0-34.0) pg MCHC 34.3 (32.0-36.0) g/dL RDW Std Deviation 55.3 H (36.4-46.3) fL RDW Coeff of Anjali 17.1 H (11.5-14.5) % Plt Count 400 (130-400) K/uL MPV 9.2 L (9.4-12.4) fL Immature Gran % (Auto) 0.3 % Neut % (Auto) 34.3 % Lymph % (Auto) 54.4 % [place] % (Auto) 6.9 % Eos % (Auto) 1.7 % Baso % (Auto) 2.4 % Neut # (Auto) 2.38 (1.40-6.50) K/uL Lymph # (Auto) 3.78 H (1.20-3.40) K/uL [place] # (Auto) 0.48 (0.11-0.59) K/uL Eos # (Auto) 0.12 (0.00-0.50) K/uL Baso # (Auto) 0.17 (0.00-0.20) K/uL Immature Gran # (Auto) 0.02 (0.01-0.20) K/uL Target Cells 1+ Sodium 143 (136-145) mmol/L Potassium 3.9 (3.5-5.1) mmol/L Chloride 106 (98-107) mmol/L Carbon Dioxide 23 (21-32) mmol/L Anion Gap 14 H (3-11) BUN 11 (6-23) mg/dl Creatinine 0.66 (0.6-1.2) mg/dl Est Cr Clr Drug Dosing 102.5 ml/min eGFR 108.81 BUN/Creatinine Ratio 16.7 (10-20) Glucose 88 (70-99(Fasting)) mg/dl Calcium 9.0 (8.6-10.3) mg/dl Magnesium 1.9 (1.7-2.4) mg/dl Total Bilirubin 0.4 (0.2-1.0) mg/dl AST 53 H (13-39) U/L ALT 99 H (7-52) U/L Alkaline Phosphatase 84 (34-104) U/L Total Protein 7.2 (6.0-8.3) gm/dl Albumin 4.5 (3.4-5.0) gm/dl Globulin 2.7 (2.5-4.0) gm/dl Albumin/Globulin Ratio 1.7 (0.9-2) HCG, Qual Negative (Negative) Ethyl Alcohol mg/dL 512.0 H (<10.0) mg/dl Administered Medications Buspirone HCl (Buspirone 5 Mg Tab) 5 mg PO TID [facility] Stop: 02/09/25 20:59 Last Admin: 01/10/25 21:22 Dose: 5 mg Documented By: ORION Buspirone HCl (Buspirone 15 Mg Tab) 15 mg PO TID [facility] Stop: 02/09/25 20:59 Last Admin: 01/10/25 21:22 Dose: 15 mg Documented By: ORION Diazepam (Diazepam 5 Mg Tablet) 5 mg PO Q6H [facility] Stop: 02/09/25 20:59 Last Admin: 01/10/25 21:23 Dose: Not Given Documented By: ORION Lactated Ringer's (Lr) 1,000 mls @ 80 mls/hr IV .[id number] [facility] Stop: 01/13/25 18:44 Last Admin: 01/10/25 20:53 Dose: 80 mls/hr Documented By: ORION Lorazepam (Lorazepam 2 Mg/1 Ml Vial) 2 mg IV UD PRN; Protocol PRN Reason: EtOH Withdrawal AWSS Score 8,9 Stop: 02/09/25 20:03 Last Admin: 01/10/25 20:18 Dose: 2 mg Documented By: KENYA Miscellaneous (Desvenlafaxine Succinate 50mg - Order Awaiting Action) 1 each N/A QS [facility] Stop: 02/10/25 00:00 Last Admin: 01/10/25 23:14 Dose: Not Given Documented By: ORION Miscellaneous (Desvenlafaxine Succinate 25mg - Order Awaiting Action) 1 each N/A QS [facility] Stop: 02/10/25 00:00 Last Admin: 01/10/25 23:14 Dose: Not Given Documented By: ORION Discontinued Medications Gabapentin (Gabapentin 600 Mg Tab) 1,200 mg PO NOW STA Stop: 01/10/25 20:05 Last Admin: 01/10/25 21:22 Dose: 1,200 mg Documented By: ORION Sodium Chloride (Nss) 1,000 mls @ 999 mls/hr IV .Q1H1M ONE Stop: 01/10/25 17:43 Last Infusion: 01/10/25 20:32 Dose: Infused Documented By: Admin: 01/10/25 19:40 Dose: 999 mls/hr Documented By: KENYA Thiamine HCl 500 mg/ Sodium (Chloride) 55 mls @ 210 mls/hr IV NOW STA Stop: 01/10/25 17:57 Last Infusion: 01/10/25 20:24 Dose: Infused Documented By: Admin: 01/10/25 20:08 Dose: 210 mls/hr Documented By: KENYA Folic Acid 1 mg/ Syringe 10 mls @ 5 mls/min IV NOW STA Stop: 01/10/25 17:43 Last Admin: 01/10/25 20:07 Dose: 5 mls/min Documented By: KENYA Lorazepam (Lorazepam 1 Mg Tab) 1 mg SL NOW STA Stop: 01/10/25 16:44 Last Admin: 01/10/25 16:52 Dose: 1 mg Documented By: HIWOT Lorazepam (Lorazepam 2 Mg/1 Ml Vial) 2 mg IM NOW PRN PRN Reason: Agitation Stop: 02/09/25 17:04 Last Admin: 01/10/25 17:27 Dose: 2 mg Documented By: HIWOT Lorazepam (Lorazepam 2 Mg/1 Ml Vial) Confirm Administered Dose 2 mg .ROUTE .STK- MED ONE Stop: 01/10/25 20:16 Last Admin: 01/10/25 21:02 Dose: Not Given Documented By: [facility] Discharge Plan Visit Data Chief Complaint: Alcohol Intoxication Stated Complaint: ALCOHOL INTOXICATION ED Provider: Deb Blul Discharge Problem: Alcoholic intoxication Patient Disposition: Admitted As Inpatient Condition: Fair Discharge Instructions Interventions: ED Discharge Assessment Last Done: 01/10/25 20:37
--- NOTE | 2025-01-10 18:43 | History & Physical Report ---
Date of Service January 10, 2025 Assessment & Plan (1) Alcoholic intoxication: (2) Nicotine dependence: (3) Hyperlipidemia: (4) Anxiety: Plan The patient is a 49-year-old female with a past medical history of alcohol abuse who presents to the ED on 01/10/2025 requesting alcohol detox Alcohol intoxication Alcohol use disorder Alcohol withdrawal -Alcohol level on arrival 512, recently discharged on 12/31 after alcohol detox Patient reported her last drink was a few days ago Gabapentin taper, valium and Ativan ordered to help manage alcohol withdrawal Continue IV fluids, thiamine, folic acidnaltrexone on DC Hx anxiety: Continue buspirone/Atarax/trazodone/desvenlafaxine A total of 60 minutes was spent on chart review/reviewing diagnostic data/facilitating plan of care/discussion with consultants Seen in collaboration with Dr. Galarza. \Please see his addendum for further recommendations Full code DVT prophylaxis: SCDs History of Present Illness Chief Complaint: Request for alcohol detox Primary Care Provider: NO PCP The patient is a 49-year-old female with a past medical history of HLD, depression, insomnia, anxiety, ongoing alcohol abuse who presents to the ED on 01/10/2025 as a request for alcohol detox. The patient was recently discharged on 12/31/2024 with a similar visit. She was discharged home with an outpatient plan in place and was directed to continue her naltrexone. Patient also reports that she had been in alcohol rehab 4 times in the past prior to that visit. Reporting to drink 1 pint of vodka daily. In the ER, patient was agitated and required a dose of Ativan. On arrival to the ED, labs remarkable for alcohol level 512, AST 53, ALT 99, anion gap 14. The patient is hemodynamically stable. Mildly tachycardic in the low 100s. Reported her last drink was a few days ago. Smokes a pack a day, denied any drug use. The patient will be admitted for monitoring of alcohol detox and withdrawal. Allergies Allergy/AdvReac Type Severity Reaction Status Date / Time No Known Allergies Allergy NONE Verified 12/29/24 19:24 Home Medications Medication Instructions Recorded Confirmed Type buspirone 10 mg tablet 20 mg PO TID 12/29/24 01/10/25 History desvenlafaxine succinate 25 mg 25 mg PO DAILY 12/29/24 01/10/25 History tablet,extended release 24 hr desvenlafaxine succinate 50 mg 50 mg PO DAILY 12/29/24 01/10/25 History tablet,extended release 24 hr hydroxyzine HCl 50 mg tablet 50 mg PO Q8 PRN Anxiety 12/29/24 01/10/25 History naltrexone 50 mg tablet 50 mg PO QAM 12/29/24 01/10/25 History trazodone 100 mg tablet 100 mg PO HS PRN Sleep 12/29/24 01/10/25 History Past Med/Surg History Problem List (Updated 01/10/25 @ 18:39 by ESAU Mcknight) Anxiety Hyperlipidemia Tick bite (Acute) Alcoholic intoxication (Acute) Nicotine dependence Rash and nonspecific skin eruption (Acute) Urinary tract infection Pyelonephritis (Acute) Displaced fracture of fifth metatarsal bone of left foot (Acute) Medical History (Updated 01/10/25 @ 18:39 by ESAU Mcknight) Nicotine dependence Surgical History S/P tonsillectomy History of ankle surgery Social History Smoking Status: Never smoker Tobacco Type: Cigarettes Cigarettes Per Day: 1 pack; Hx Alcohol Use: Yes Alcohol type: hard liquor Hx Substance Use: No Preferred Language: Mosotho Communication Ability: Effective Assistant Corporate Secretary Required: No Beliefs That Will Affect Care: None Current Living Situation: Alone Feels Safe at Home: Yes Assistive Devices: None Review of Systems Review of Systems: All systems reviewed & are unremarkable except as noted in HPI & below Physical Exam Physical Exam: Please see attending physician addendum for physical exam Results & Data Results & Data Vital Signs (Past 12 Hours) Vital Signs Temp Pulse Resp BP Pulse Ox O2 Del Method 01/10/25 16:20 96 Room Air 01/10/25 15:54 36.9 C 109 H 16 131/89 95 Room Air Diagnostic Findings Laboratory Results WBC 6.95 K/ul (4.8-10.8) 01/10/25 16:06 RBC 4.49 M/uL (4.20-5.40) 01/10/25 16:06 Hgb 13.7 g/dl (12.0-16.0) 01/10/25 16:06 Hct 40.0 % (37.0-47.0) 01/10/25 16:06 MCV 89.1 fL (80.0-100.0) 01/10/25 16:06 MCH 30.5 pg (25.0-34.0) 01/10/25 16:06 MCHC 34.3 g/dL (32.0-36.0) 01/10/25 16:06 RDW Std Deviation 55.3 fL (36.4-46.3) H 01/10/25 16:06 RDW Coeff of Anjali 17.1 % (11.5-14.5) H 01/10/25 16:06 Plt Count 400 K/uL (130-400) 01/10/25 16:06 MPV 9.2 fL (9.4-12.4) L 01/10/25 16:06 Immature Gran % (Auto) 0.3 % 01/10/25 16:06 Neut % (Auto) 34.3 % 01/10/25 16:06 Lymph % (Auto) 54.4 % 01/10/25 16:06 [place] % (Auto) 6.9 % 01/10/25 16:06 Eos % (Auto) 1.7 % 01/10/25 16:06 Baso % (Auto) 2.4 % 01/10/25 16:06 Neut # (Auto) 2.38 K/uL (1.40-6.50) 01/10/25 16:06 Lymph # (Auto) 3.78 K/uL (1.20-3.40) H 01/10/25 16:06 [place] # (Auto) 0.48 K/uL (0.11-0.59) 01/10/25 16:06 Eos # (Auto) 0.12 K/uL (0.00-0.50) 01/10/25 16:06 Baso # (Auto) 0.17 K/uL (0.00-0.20) 01/10/25 16:06 Immature Gran # (Auto) 0.02 K/uL (0.01-0.20) 01/10/25 16:06 Target Cells 1+ 01/10/25 16:06 Sodium 143 mmol/L (136-145) 01/10/25 16:06 Potassium 3.9 mmol/L (3.5-5.1) 01/10/25 16:06 Chloride 106 mmol/L (98-107) 01/10/25 16:06 Carbon Dioxide 23 mmol/L (21-32) 01/10/25 16:06 Anion Gap 14 (3-11) H 01/10/25 16:06 BUN 11 mg/dl (6-23) 01/10/25 16:06 Creatinine 0.66 mg/dl (0.6-1.2) 01/10/25 16:06 Est Cr Clr Drug Dosing 102.5 ml/min 01/10/25 16:06 eGFR 108.81 01/10/25 16:06 BUN/Creatinine Ratio 16.7 (10-20) 01/10/25 16:06 Glucose 88 mg/dl (70-99(Fasting)) 01/10/25 16:06 Calcium 9.0 mg/dl (8.6-10.3) 01/10/25 16:06 Total Bilirubin 0.4 mg/dl (0.2-1.0) 01/10/25 16:06 AST 53 U/L (13-39) H 01/10/25 16:06 ALT 99 U/L (7-52) H 01/10/25 16:06 Alkaline Phosphatase 84 U/L (34-104) 01/10/25 16:06 Total Protein 7.2 gm/dl (6.0-8.3) 01/10/25 16:06 Albumin 4.5 gm/dl (3.4-5.0) 01/10/25 16:06 Globulin 2.7 gm/dl (2.5-4.0) 01/10/25 16:06 Albumin/Globulin Ratio 1.7 (0.9-2) 01/10/25 16:06 HCG, Qual Negative (Negative) 01/10/25 16:06 Ethyl Alcohol mg/dL 512.0 mg/dl (<10.0) H 01/10/25 16:20 Supervising Physician Co-Signing Physician Notes Patient seen and examined at the bedside. Patient presents to the hospital with alcohol intoxication. She is arousable with voice; able to follow simple commands but appears to be intoxicated and could not provide much information. She denied any pain or discomfort. Blood alcohol level of 512 Mg per DL. Plan to start alcohol withdrawal protocol, thiamine, and scheduled Valium 5 mg every 6 hours(to be on hold if lethargic/sleepy). On physical examination; Constitutional: Intoxicated. Alert and oriented to self Respiratory: Bilateral vascular breath sound Cardiovascular: RRR, no murmur, no edema Vessels: no JVD or carotid bruit Chest: normal inspection of chest Abdomen: normal bowel sounds, soft, nontender, no hepatosplenomegaly Musculoskeletal: no cyanosis or clubbing, extremities motor strength 5/5 Skin: no rashes, warm and dry normal turgor Neurologic: PERRL, EOMI, accommodation nl, no face palsy, no dysarthria CN's II- XI intact bilaterally and moves all extremities Psychiatric: A+Ox3, euthymic affect I have reviewed the advanced practitioner's documentation, and I agree with, and take responsibility for the plan of care I spent a total of 30 minutes coordinating, documenting, and providing care for this patient excluding time spent in the performance of separately billed services. All of the aforementioned completed while collaborating with the assigned advanced practitioner for a full treatment plan
[2025-01-10] MEDS: SODIUM CHLORIDE 0.9% 1,000 ML IV ONE (19:40)
[2025-01-10] MEDS ORDERED: Ativan IV Alcohol Withdrawal--Active Protocol IV PRN (20:04)
[2025-01-10] MEDS ORDERED: LORazepam 2 MG/1 ML VIAL IV PRN ×2 (20:04)
[2025-01-10] MEDS: FOLIC ACID 1 MG in SYRINGE 9.8 ML IV STA (20:07)
[2025-01-10] MEDS: THIAMINE HCL 500 MG in SODIUM CHLORIDE 0.9% 50 ML IV STA (20:08)
[2025-01-10] MEDS: LORazepam 2 MG/1 ML VIAL IV PRN (20:18)
[2025-01-10] MEDS ORDERED: GABAPENTIN 1200MG ALCOHOL WITHDRAWAL LOAD PO STA (20:53)
[2025-01-10] MEDS ORDERED: hydrOXYzine HCl 25 MG TAB PO PRN (20:53)
[2025-01-10] MEDS: LACTATED RINGER'S 1,000 ML IV SCH (20:53)
[2025-01-10] MEDS ORDERED: ACETAMINOPHEN 325 MG TAB PO PRN (20:53)
[2025-01-10] MEDS: LORazepam 2 MG/1 ML VIAL ONE (21:02)
[2025-01-10 21:06] LABS: Magnesium 1.9 mg/dl (1.7-2.4)
[2025-01-10] MEDS: GABAPENTIN 600 MG TAB PO STA (21:22)
[2025-01-10] MEDS: busPIRone 5 MG TAB PO SCH (21:22)
[2025-01-10] MEDS: busPIRone 15 MG TAB PO SCH (21:22)
[2025-01-10] MEDS: diazePAM 5 MG TABLET PO SCH (21:23)
[2025-01-11] MEDS: GABAPENTIN 600 MG TAB PO SCH (02:33)
[2025-01-11] MEDS: THIAMINE HCL 500 MG in SODIUM CHLORIDE 0.9% 50 ML IV SCH (04:27)
[2025-01-11 06:11] LABS: Basophils # (auto) 0.14 K/uL (0.00-0.20); Basophils % (auto) 2.6 %; Eosinophils # (auto) 0.15 K/uL (0.00-0.50); Eosinophils % (auto) 2.8 %; Hematocrit (blood only) 37.9 % (37.0-47.0); Hemoglobin 12.8 g/dl (12.0-16.0); Immature Granulocytes # (auto) 0.01 K/uL (0.01-0.20); Immature Granulocytes % (auto) 0.2 %; Lymphocytes # (auto) 2.63 K/uL (1.20-3.40); Lymphocytes % (auto) 48.8 %; Mean Corpuscular Hemoglobin 30.8 pg (25.0-34.0); Mean Corpuscular Hgb Conc 33.8 g/dL (32.0-36.0); Mean Corpuscular Volume 91.1 fL (80.0-100.0); Monocytes # (auto) 0.57 K/uL (0.11-0.59); Monocytes % (auto) 10.6 %; Neutrophils # (auto) 1.89 K/uL (1.40-6.50); Platelet Count 343 K/uL (130-400); RDW Coefficient of Variation 17.4 % (11.5-14.5); RDW Standard Deviation 57.6 fL (36.4-46.3); Red Blood Count 4.16 M/uL (4.20-5.40); White Blood Count 5.39 K/ul (4.8-10.8)
[2025-01-11 06:28] LABS: Albumin Globulin Ratio 1.8 (0.9-2); Albumin Level 3.9 gm/dl (3.4-5.0); BUN Creatinine Ratio 19.7 (10-20); Bilirubin,Total 0.5 mg/dl (0.2-1.0); Calcium 8.4 mg/dl (8.6-10.3); Creatinine Clr Calc Pharmacy 102.5 ml/min; Globulin 2.2 gm/dl (2.5-4.0); Magnesium 1.7 mg/dl (1.7-2.4); Phosphorus 2.8 mg/dl (2.5-4.9); Potassium 3.8 mmol/L (3.5-5.1); Total Protein 6.1 gm/dl (6.0-8.3)
[2025-01-11] MEDS: FOLIC ACID 1 MG in SYRINGE 9.8 ML IV SCH (09:10)
--- NOTE | 2025-01-11 11:46 | Hospitalist Progress Note ---
Date of Service January 11, 2025 Assessment & Plan (1) Alcoholic intoxication: (2) Nicotine dependence: (3) Hyperlipidemia: (4) Anxiety: Plan The patient is a 49-year-old female with a past medical history of alcohol abuse who presents to the ED on 01/10/2025 requesting alcohol detox. Alcohol intoxication, resolved Alcohol use disorder Alcohol withdrawal -Alcohol level on arrival 512, recently discharged on 12/31 after alcohol detox -patient unsure on inpatient rehab at this time -has never had delirium tremens before -patient has had numerous alcohol withdrawals, rehabs and relapses, has recently failed outpatient rehab Plan: -loaded with diazepam already, start prn diazepam dosing based on AWSS score -stop gabapentin, ativan -thiamine, folic acid -strongly recommend inpatient rehab Hx anxiety: Continue buspirone/Atarax/trazodone/desvenlafaxine I spent a total of 50 minutes in direct patient care, including [id number] time with the patient and/or family, reviewing medical records, ordering and reviewing diagnostic tests, and coordinating care with other healthcare providers. This time includes: history taking, physical examination, medical decision making, counseling, ECG interpretation, imaging interpretation, lab interpretation, orders, and education, excluding time spent in the performance of separately billed services. Admission and Anticipated Discharge Date Admission Date: January 10, 2025 Subjective Patient seen and examined at bedside. Patient doing ok today. Was recently discharged with similar symptoms. Unlikely to be in acute withdrawal yet as was very acutely intoxicated when presenting to the ED. When asked about inpatient rehab, she states "she is just not sure". Review of Systems Review of Systems: CONSTITUTIONAL: Patient denies fevers, chills, sweats and weight changes. EYES: Patient denies any visual symptoms. EARS, NOSE, AND THROAT: No difficulties with hearing. No symptoms of rhinitis or sore throat. CARDIOVASCULAR: Patient denies chest pains, palpitations, orthopnea and paroxysmal nocturnal dyspnea. RESPIRATORY: No dyspnea on exertion, no wheezing or cough. GI: No nausea, vomiting, diarrhea, constipation, abdominal pain, hematochezia or melena. : No urinary hesitancy or dribbling. No nocturia or urinary frequency. No abnormal urethral discharge. MUSCULOSKELETAL: No myalgias or arthralgias. NEUROLOGIC: No chronic headaches, no seizures. Patient denies numbness, tingling or weakness. PSYCHIATRIC: Patient denies problems with mood disturbance. No problems with anxiety. ENDOCRINE: No excessive urination or excessive thirst. DERMATOLOGIC: Patient denies any rashes or skin changes. Physical Exam Physical Exam: Gen: A&O 3 NAD HEENT: NCAT, EOMI, not icteric. External ears normal. No rhinorrhea. Moist mucous membranes. Neck: Supple, full range of motion, no observable masses, No meningeal sign. Lungs: No Respiratory distress. CV: RRR, no edema. Abdomen: Soft, nondistended, No rebound tenderness. MSK: No joint swelling, no redness. Skin: No rashes, petechiae, lesions. Normal color per patient. Neuro: Normal Gait, Grossly intact. very mild tremors in hands bilaterally Psych: Appropriate for situation. Results & Data Results & Data Vital Signs (Past 12 Hours) Vital Signs Temp Pulse Resp BP Pulse Ox O2 Del Method 01/11/25 07:50 37 C 81 19 127/77 95 Room Air 01/11/25 03:24 36.8 C 80 16 114/72 93 Room Air Laboratory Results -personally reviewed, elevated LFTs in setting of acute alcohol use Medications Administered Buspirone HCl (Buspirone 5 Mg Tab) 5 mg PO TID [facility] Stop: 02/09/25 20:59 Last Admin: 01/11/25 09:09 Dose: 5 mg Documented By: Admin: 01/10/25 21:22 Dose: 5 mg Documented By: ORION Buspirone HCl (Buspirone 15 Mg Tab) 15 mg PO TID [facility] Stop: 02/09/25 20:59 Last Admin: 01/11/25 09:08 Dose: 15 mg Documented By: Admin: 01/10/25 21:22 Dose: 15 mg Documented By: ORION Diazepam (Diazepam 5 Mg Tablet) 5 mg PO Q6H [facility] Stop: 02/09/25 20:59 Last Admin: 01/11/25 09:08 Dose: 5 mg Documented By: Admin: 01/11/25 02:29 Dose: Not Given Documented By: Admin: 01/10/25 21:23 Dose: Not Given Documented By: ORION Lactated Ringer's (Lr) 1,000 mls @ 80 mls/hr IV .[id number] [facility] Stop: 01/13/25 18:44 Last Admin: 01/11/25 08:58 Dose: 80 mls/hr Documented By: Infusion: 01/11/25 08:58 Dose: Infused Documented By: Admin: 01/10/25 20:53 Dose: 80 mls/hr Documented By: ORION Thiamine HCl 500 mg/ Sodium (Chloride) 55 mls @ 210 mls/hr IV Q8H [facility] Stop: 01/13/25 20:52 Last Infusion: 01/11/25 05:04 Dose: Infused Documented By: Admin: 01/11/25 04:27 Dose: 210 mls/hr Documented By: ORION Folic Acid 1 mg/ Syringe 10 mls @ 5 mls/min IV QAM [facility] Stop: 02/10/25 08:59 Last Admin: 01/11/25 09:10 Dose: 5 mls/min Documented By: JULIETA Lorazepam (Lorazepam 2 Mg/1 Ml Vial) 2 mg IV UD PRN; Protocol PRN Reason: EtOH Withdrawal AWSS Score 8,9 Stop: 02/09/25 20:03 Last Admin: 01/10/25 20:18 Dose: 2 mg Documented By: KENYA Miscellaneous (Desvenlafaxine Succinate 50mg - Order Awaiting Action) 1 each N/A QS [facility] Stop: 02/10/25 00:00 Last Admin: 01/11/25 09:09 Dose: Not Given Documented By: Admin: 01/10/25 23:14 Dose: Not Given Documented By: ORION Miscellaneous (Desvenlafaxine Succinate 25mg - Order Awaiting Action) 1 each N/A QS [facility] Stop: 02/10/25 00:00 Last Admin: 01/10/25 23:14 Dose: Not Given Documented By: ORION
[2025-01-11] MEDS ORDERED: diazePAM 5 MG TABLET PO PRN ×2 (11:49)
[2025-01-11 11:53] VITALS: BP 134/77; RESP 18; TEMP 97.9; O2SAT 97
--- NOTE | 2025-01-11 13:24 | Electrocardiogram Report ---
Test Reason : Blood Pressure : */* mmHG Vent. Rate : 74 BPM Atrial Rate : 74 BPM P-R Int : 136 ms QRS Dur : 74 ms QT Int : 398 ms P-R-T Axes : 65 79 62 degrees QTcB Int : 441 ms Normal sinus rhythm with sinus arrhythmia Normal ECG When compared with ECG of 29-Dec-2024 18:40, No significant change was found Confirmed by Osmar Harrison ([id number]) on 01/11/2025 1:24:31 PM Referred By: REFERRED SELF Confirmed By: Osmar Harrison
--- NOTE | 2025-01-11 13:31 | Discharge Summary ---
Discharge Summary Date of Service January 11, 2025 Principal Dx & Hospital Course #1 = Principal Diagnosis (1) Alcoholic intoxication: (2) Nicotine dependence: (3) Hyperlipidemia: (4) Anxiety: Plan The patient is a 49-year-old female with a past medical history of alcohol abuse who presents to the ED on 01/10/2025 requesting alcohol detox. Alcohol intoxication, resolved Alcohol use disorder Alcohol withdrawal -Alcohol level on arrival 512, recently discharged on 12/31 after alcohol detox -patient unsure on inpatient rehab at this time -has never had delirium tremens before -patient has had numerous alcohol withdrawals, rehabs and relapses, has recently failed outpatient rehab Plan: -loaded with diazepam already, start prn diazepam dosing based on AWSS score -stop gabapentin, ativan -thiamine, folic acid -strongly recommend inpatient rehab Hx anxiety: Continue buspirone/Atarax/trazodone/desvenlafaxine Notes For Next Care Provider The patient is a 49-year-old female with a past medical history of HLD, depression, insomnia, anxiety, ongoing alcohol abuse who presents to the ED on 01/10/2025 as a request for alcohol detox. The patient was recently discharged on 12/31/2024 with a similar visit. She was discharged home with an outpatient plan in place and was directed to continue her naltrexone. REturns to ED today acutely intoxicated, admitted to medicine. On medicine, patient states she does not want assistance with withdrawal, does not want inpatient rehab at this time, and is requesting to go home. Cautioned on harms of ongoing alcohol abuse, including worsening health and up to and including . She understands these risks and states she is likely going to drink when she goes home again. Has outpatient resources to help with alcohol use as needed. Encouraged to go to inpatient rehab again, she states she cant at this time. On 01/11/2025 patient discharged home at patient request, and accepts risks of leaving. Medication Changes From Visit -see below Admission HPI Per Admitting Provider The patient is a 49-year-old female with a past medical history of HLD, depression, insomnia, anxiety, ongoing alcohol abuse who presents to the ED on 01/10/2025 as a request for alcohol detox. The patient was recently discharged on 12/31/2024 with a similar visit. She was discharged home with an outpatient plan in place and was directed to continue her naltrexone. Patient also reports that she had been in alcohol rehab 4 times in the past prior to that visit. Reporting to drink 1 pint of vodka daily. In the ER, patient was agitated and required a dose of Ativan. On arrival to the ED, labs remarkable for alcohol level 512, AST 53, ALT 99, anion gap 14. The patient is hemodynamically stable. Mildly tachycardic in the low 100s. Reported her last drink was a few days ago. Smokes a pack a day, denied any drug use. The patient will be admitted for monitoring of alcohol detox and withdrawal. Discharge Exam Gen: A&O 3 NAD HEENT: NCAT, EOMI, not icteric. External ears normal. No rhinorrhea. Moist mucous membranes. Neck: Supple, full range of motion, no observable masses, No meningeal sign. Lungs: No Respiratory distress. CV: RRR, no edema. Abdomen: Soft, nondistended, No rebound tenderness. MSK: No joint swelling, no redness. Skin: No rashes, petechiae, lesions. Normal color per patient. Neuro: Normal Gait, Grossly intact. very mild tremors in hands bilaterally Psych: Appropriate for situation. Updated Medication List Medication Instructions Recorded Confirmed Type buspirone 10 mg tablet 20 mg PO TID 12/29/24 01/10/25 History desvenlafaxine succinate 25 mg 25 mg PO DAILY 12/29/24 01/10/25 History tablet,extended release 24 hr desvenlafaxine succinate 50 mg 50 mg PO DAILY 12/29/24 01/10/25 History tablet,extended release 24 hr hydroxyzine HCl 50 mg tablet 50 mg PO Q8 PRN Anxiety 12/29/24 01/10/25 History naltrexone 50 mg tablet 50 mg PO QAM 12/29/24 01/10/25 History trazodone 100 mg tablet 100 mg PO HS PRN Sleep 12/29/24 01/10/25 History folic acid 1 mg tablet 1 mg PO DAILY #30 tabs 01/11/25 Rx thiamine HCl (vitamin B1) 100 mg 100 mg PO DAILY #30 tabs 01/11/25 Rx tablet Hospital Stay Data Consultations 01/10/25 18:33 ED Decision to Admit Stat Pending Results Patient Have Any Pending Studies at Discharge: No Discharge Instructions Given to Patient (Per Discharging Provider) 1. Please continue to utilize sobriety resources. 2. Please continue to consider inpatient rehab. Total Time Total Time Spent Total Time Spent (In Minutes): I spent a total of 35 minutes in direct patient care, including [id number] time with the patient and/or family, reviewing medical records, ordering and reviewing diagnostic tests, and coordinating care with other healthcare providers. This time includes: history taking, physical examination, medical decision making, counseling, ECG interpretation, imaging interpretation, lab interpretation, orders, and education, excluding time spent in the performance of separately billed services.
[2025-01-11 13:33] VITALS: PULSE 65
[2025-01-11] MEDS ORDERED: GABAPENTIN 600 MG TAB PO SCH (14:45)
[2025-01-12] MEDS ORDERED: GABAPENTIN 600 MG TAB PO SCH (18:45)
[2025-01-14] MEDS ORDERED: GABAPENTIN 600 MG TAB PO SCH (06:45)
== END 2025-01-11 13:41 | disposition home or self-care (01) ==
LOC: ED 15:47 → SUATTDRO 18:35 → INTOOBSV 18:35 → 2E 18:35